=== PATIENT | female | born 1965 | race Caucasian/White ===

== ENCOUNTER 2024-07-13 13:16 | Outpatient (AMB) | payer OTHER, SELFPAY ==
--- NOTE | 2024-07-13 13:20 | MHC.OFFVIS ---
Vital Signs 07/13/24 13:26 Height 5 ft 2 in Weight 206 lb BMI 37.7 BP 132/88 Blood Pressure Location Lt brachial Position Sitting Pulse 75 Pulse Source Pulse Oximeter Pulse Oximetry (%) 96 Oxygen Delivery Method Room Air Intake Visit Reasons: abnormal lab Intake Note: Patient presents for a new patient evaluation- Raised antibody titer Athletic Trainer Required: No Accompanied by: Self / Same As Patient Allergies No Known Allergies Allergy (Verified 07/13/24 13:26) HPI HPI abnormal lab: Details: Patient presents for evaluation due to recurrent toe swelling since 01/2022 with abnormal labs low titer positive rheumatoid factor and ferritin level. In January she developed toe swelling involving her 3rd and 4th toes. Each episode would last about 2 weeks. When she initially had swelling, she would have difficulty walking and bearing weight on joint. She would use NSAID ibuprofen when needed. Last episode was early May and lasted about a week. She presented to PCPs office in saw a PA who prescribed naproxen, which patient took twice a day for a week. She has no joint swelling at this time. This year she has had 2 episode of recurrent toe swelling. Patient showed me photos which appears as dactylitis involving right 3rd and 4th toes with slight synovitis of right 3rd and 4th MTP. No other joints are involved. She denies Raynaud's phenomenon, fevers, rash occurring with joint swelling, dyspnea, pleurisy, oral ulcers, uveitis, IBD, psoriasis, paresthesia or cytopenias. She has lesions on her trunk treated with topical betamethasone. When she told her extrusion manager about toe swelling, extrusion manager mentioned to her that she may have psoriatic arthritis. Patient reports she has not had confirmed psoriasis. She does not describe lesions as typical plaque psoriasis. Denies any scaling of her lesions. She denies having back pain in childhood. She currently does not have any back pain. Prior to January 2022 she has not had any joint swelling. 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 She has not seen a cut out and marking machine operator and being monitored routinely. She has intermittent wrists paresthesia when she sleeps with her wrists flexed at night. Self-limiting. 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 No current elbow pain at this time. No history of diagnostic arthrocentesis being performed. She reports history of elevated uric acid level tested on 2 occasions. She saw PCP and had blood drawn today. She plans to move to [place] in 9 days because her daughter will be giving in July. She will continue to keep her medical care in [place]. Maternal aunts have son has psoriasis. No family history of IBD. Her mother has rheumatoid arthritis [facility] Medical History (Updated 07/13/24 @ 15:14 by Adam Perez MD) Raised antibody titer Tubular adenoma History of urinary disorder Allergic rhinitis Pre-diabetes Allergic urticaria Asthma Essential hypertension Surgical History (Updated 07/13/24 @ 13:25 by Claire Valadez MA) Status post breast reduction H/O breast biopsy Family History (Updated 07/13/24 @ 13:24 by Claire Valadez MA) Mother Rheumatoid arthritis Social History (Updated 07/13/24 @ 13:24 by Claire Valadez MA) Alcohol intake: current Comment: Occasionally Patient Tobacco Use Status: Never used Tobacco Review of Systems Const All systems reviewed & are unremarkable except as noted in HPI and below Physical Exam Vital Signs: Last Vital Signs Pulse 75 07/13/24 13:26 BP 132/88 07/13/24 13:26 Pulse Ox 96 07/13/24 13:26 Oxygen Delivery Method Room Air 07/13/24 13:26 BMI result Body Mass Index 37.7 Const Other: General: Comfortable CVS: RRR Respiratory: clear to auscultation bilaterally. Good respiratory effort Skin: Erythematous line 1 cm on right side of abdomen. No scales. No psoriatic plaque. MSK: No tenderness to palpate of any joints. No synovitis found. [place] nodes seen. Subluxation right DIPJ. Tenderness left lateral epicondyle. No pain at elbow with resisted wrist extension. Good range of motion of upper extremity and lower extremity. No dactylitis present. No enthesitis. No tenderness of lumbar spinous process or SI joints. Good range of motion of cervical spine and lumbar flexion. Negative DARRYL. Assessment & Plan Assessment & Plan (1) Gout: Comment: Recurrent podagra affecting right 3rd and 4th toe is concerning for gout. Time course of each episode is about 2 weeks treated with NSAID with benefit, which is typical for gout attack. She has history of rash on her trunk but it does not appear as classic psoriasis. She does not have any other spondyloarthritis features at this time. Can consider psoriatic arthritis in the differential but my clinical suspicion is low. I recommended obtaining lab results from today, which she had done at lab [facility]. If uric acid level is greater than 6 (goal), I will start allopurinol and colchicine. We discussed side effects of allopurinol colchicine. Code(s): M10.9 - Gout, unspecified Category: Medical Qualifiers: Chronicity: unspecified Gout etiology: unspecified cause Gout site: toe Laterality: right Qualified Code(s): M10.9 - Gout, unspecified Plan: Requesting lab results from [facility] Requesting right foot x-ray from [facility] After lab results are reviewed, I may consider starting allopurinol 100 mg daily and colchicine 0.6 mg daily. She will need labs checked monthly for uric acid level and every 3 months for uric acid level, AST, ALT and creatinine. She will call office when she is in [place] for our office to fax lab requisition to her local lab. She will keep a photo diary Return to clinic in 3 months or sooner if needed (2) Hyperuricemia: Comment: Per history Code(s): E79.0 - Hyperuricemia without signs of inflammatory arthritis and tophaceous disease Category: Medical Plan: Requesting lab results from today's lab draw. (3) Lateral epicondylitis, left elbow: Comment: Left mild suspected based on clinical exam and history. At this time she is asymptomatic. Discussed conservative management Code(s): M77.12 - Lateral epicondylitis, left elbow Category: Medical Plan: If she has recurrent persistent pain, she will call office for PT order Return to clinic in 3 months (4) Rash and other nonspecific skin eruption: Comment: Unclear etiology of rash that she has on her trunk. It does not appear as classic psoriasis. She is followed by Dermatology and is prescribed topical betamethasone when needed for rash. Code(s): R21 - Rash and other nonspecific skin eruption Category: Medical Plan: Photo log Continue to follow up with Dermatology (5) Rheumatoid factor positive: Comment: Low titer positive rheumatoid factor. Her clinical presentation with recurrent toe dactylitis is not consistent with rheumatoid arthritis. Code(s): R76.8 - Other specified abnormal immunological findings in serum Category: Medical Plan: Monitor clinically (6) Elevated ferritin level: Comment: Acute phase reaction in setting of right toe dactylitis likely due to gout attack. Low clinical suspicion for adult onset Still's disease or periodic fever syndrome or any other connective tissue disease. Code(s): R79.89 - Other specified abnormal findings of blood chemistry Category: Medical Plan: Requesting lab results from today's lab draw Coding Level of Care Code New Pt Level 4 (05580) Diagnoses Gout involving toe of right foot, unspecified cause, unspecified chronicity M10.9 Chronicity: unspecified Gout etiology: unspecified cause Gout site: toe Laterality: right Hyperuricemia E79.0 Lateral epicondylitis, left elbow M77.12 Rash and other nonspecific skin eruption R21 Rheumatoid factor positive R76.8 Elevated ferritin level R79.89
[2024-07-13 13:26] VITALS: BP 132/88; PULSE 75; O2SAT 96; BMI 37.7
== END 2024-07-13 14:15 | disposition home or self-care (01) ==
PROVIDERS: Visit Provider Internal Medicine Rheumatology
DX: M10.9 Gout, unspecified (principal); E79.0 Hyperuricemia without signs of inflammatory arthritis and tophaceous disease; M77.12 Lateral epicondylitis, left elbow; R21 Rash and other nonspecific skin eruption; R76.8 Other specified abnormal immunological findings in serum; R79.89 Other specified abnormal findings of blood chemistry
CPT/HCPCS: 99204

== ENCOUNTER 2024-10-07 13:46 | Outpatient (AMB) | payer OTHER, SELFPAY ==
--- NOTE | 2024-10-07 13:54 | A.OFFVIS_ITS ---
Vital Signs 10/07/24 13:57 Height 5 ft 2 in Weight 206 lb 9.17 oz BMI 37.8 BP 128/80 Pulse 77 Pulse Source Palpation Pulse Oximetry (%) 96 Oxygen Delivery Method Room Air Intake Visit Reasons: abnormal lab Intake Note: Patient presents today to discuss abnormal labs Allergies No Known Allergies Allergy (Verified 07/13/24 13:26) HPI HPI abnormal lab: Details: AST 19 10/[facility]. She has not had another episode of toe or foot swelling. She feels well. [facility] Medical History Raised antibody titer Tubular adenoma History of urinary disorder Allergic rhinitis Pre-diabetes Allergic urticaria Asthma Essential hypertension Surgical History Status post breast reduction H/O breast biopsy Family History Mother Rheumatoid arthritis Social History Alcohol intake: current Comment: Occasionally Patient Tobacco Use Status: Never used Tobacco Review of Systems Const All systems reviewed & are unremarkable except as noted in HPI and below Physical Exam Vital Signs: Last Vital Signs Pulse 77 10/07/24 13:57 BP 128/80 10/07/24 13:57 Pulse Ox 96 10/07/24 13:57 Oxygen Delivery Method Room Air 10/07/24 13:57 BMI result Body Mass Index 37.8 Const Other: General: Comfortable CVS: RRR Respiratory: clear to auscultation bilaterally. Good respiratory effort Skin: No skin lesions. MSK: No tenderness to palpate of any joints. No synovitis found. Assessment & Plan Assessment & Plan (1) Gout: Comment: Recurrent podagra affecting right 3rd and 4th toe is concerning for gout. Time course of each episode is about 2 weeks treated with NSAID with benefit, which is typical for gout attack. She has had mild transaminitis with repeat labs showing normal liver function tests. In setting of hyperuricemia, I recommend s tarting allopurinol and colchicine with goal of lowering uric acid to less than 6. We discussed side effects of allopurinol colchicine. Code(s): M10.9 - Gout, unspecified Category: Medical Qualifiers: Gout site: toe Gout etiology: unspecified cause Chronicity: unspecified Laterality: right Qualified Code(s): M10.9 - Gout, unspecified Plan: Start allopurinol 100 mg daily and colchicine 0.6 mg daily. She will need labs checked monthly for uric acid level and every 3 months for uric acid level, AST, ALT and creatinine. Lab requisition to her local lab in [place]. She will keep a photo diary Return to clinic in 6 months or sooner if needed (2) Hyperuricemia: Comment: Per history Code(s): E79.0 - Hyperuricemia without signs of inflammatory arthritis and tophaceous disease Category: Medical Plan: Requesting lab results from today's lab draw (3) Rheumatoid factor positive: Comment: Low titer positive rheumatoid factor. Her clinical presentation with recurrent toe dactylitis is not consistent with rheumatoid arthritis. Code(s): R76.8 - Other specified abnormal immunological findings in serum Category: Medical Plan: Monitor clinically Orders: Orders Uric Acid 11/06/24 E79.0 - Hyperuricemia without signs of inflammatory arthritis and tophaceous disease Uric Acid 12/06/24 E79.0 - Hyperuricemia without signs of inflammatory arthritis and tophaceous disease Uric Acid 01/05/25 E79.0 - Hyperuricemia without signs of inflammatory arthritis and tophaceous disease Uric Acid 02/04/25 E79.0 - Hyperuricemia without signs of inflammatory arthritis and tophaceous disease Uric Acid 05/05/25 E79.0 - Hyperuricemia without signs of inflammatory arthritis and tophaceous disease Alanine Aminotransferase 10/07/24 Z79.60 - prison (current) use of unspecified immunomodulators and immunosuppressants Aspartate Amino Transferase 10/07/24 Z79.60 - superintendent container terminal (current) use of unspecified immunomodulators and immunosuppressants Complete Blood Count Auto Diff 10/07/24 Z79.60 - superintendent container terminal (current) use of unspecified immunomodulators and immunosuppressants Creatinine 10/07/24 Z79.60 - prison (current) use of unspecified immunomod ulators and immunosuppressants Creatinine 10/07/24 Z79.60 - prison (current) use of unspecified immunomodulators and immunosuppressants Creatinine 04/05/25 Z79.60 - prison (current) use of unspecified immunomodulators and immunosuppressants Complete Blood Count Auto Diff 01/05/25 Z79.60 - superintendent container terminal (current) use of unspecified immunomodulators and immunosuppressants Complete Blood Count Auto Diff 04/05/25 Z79.60 - superintendent container terminal (current) use of unspecified immunomodulators and immunosuppressants Complete Blood Count Auto Diff 07/04/25 Z79.60 - prison (current) use of unspecified immunomodulators and immunosuppressants Aspartate Amino Transferase 10/07/24 Z79.60 - superintendent container terminal (current) use of unspecified immunomodulators and immunosuppressants Aspartate Amino Transferase 04/05/25 Z79.60 - prison (current) use of unspecified immunomodulators and immunosuppressants Alanine Aminotransferase 04/05/25 Z79.60 - superintendent container terminal (current) use of unspecified immunomodulators and immunosuppressants Alanine Aminotransferase 07/04/25 Z79.60 - prison (current) use of unspecified immunomodulators and immunosuppressants Uric Acid 10/07/24 E79.0 - Hyperuricemia without signs of inflammatory arthritis and tophaceous disease Uric Acid 10/07/24 E79.0 - Hyperuricemia without signs of inflammatory art hritis and tophaceous disease Uric Acid 03/06/25 E79.0 - Hyperuricemia without signs of inflammatory arthritis and tophaceous disease Uric Acid 04/05/25 E79.0 - Hyperuricemia without signs of inflammatory arthritis and tophaceous disease Creatinine 01/05/25 Z79.60 - superintendent container terminal (current) use of unspecified immunomodulators and immunosuppressants Creatinine 07/04/25 Z79.60 - superintendent container terminal (current) use of unspecified immunomodulators and immunosuppressants Complete Blood Count Auto Diff 10/07/24 Z79.60 - superintendent container terminal (current) use of unspecified immunomodulators and immunosuppressants Aspartate Amino Transferase 01/05/25 Z79.60 - prison (current) use of unspecified immunomodulators and immunosuppressants Aspartate Amino Transferase 07/04/25 Z79.60 - superintendent container terminal (current) use of unspecified immunomodulators and immunosuppressants Alanine Aminotransferase 10/07/24 Z79.60 - superintendent container terminal (current) use of unspecified immunomodulators and immunosuppressants Alanine Aminotransferase 01/05/25 Z79.60 - prison (current) use of unspecified immunomodulators and immunosuppressants Medications: New allopurinol 100 mg PO DAILY 90 tabs 0RF colchicine 0.6 mg PO DAILY 90 tabs 1RF Coding Level of Care Code Est Pt Level 4 (73714) Complex EM visit Add On G2211 Diagnoses Gout involving toe of right foot, unspecified cause, unspecified chronicity M10.9 Gout site: toe Gout etiology: unspecified cause Chronicity: unspecified Laterality: right Hyperuricemia E79.0 Rheumatoid factor positive R76.8
[2024-10-07 13:57] VITALS: BP 128/80; PULSE 77; O2SAT 96; BMI 37.8
== END 2024-10-07 14:41 | disposition home or self-care (01) ==
LOC: HO.RHES 13:47
PROVIDERS: PCP Family Medicine; Visit Provider Internal Medicine Rheumatology
DX: M10.9 Gout, unspecified (principal); E79.0 Hyperuricemia without signs of inflammatory arthritis and tophaceous disease; R76.8 Other specified abnormal immunological findings in serum
CPT/HCPCS: 99214

== ENCOUNTER → 2024-10-07 13:46 | Outpatient (BNVA) | payer OTHER, SELFPAY | PROVIDERS: PCP Family Medicine; Visit Provider Internal Medicine Rheumatology ==

== ENCOUNTER 2025-04-14 14:06 | Outpatient (AMB) | payer BC, SELFPAY ==
[2025-04-14 14:48] VITALS: BP 126/70; PULSE 79; O2SAT 97; BMI 41.0
--- NOTE | 2025-04-14 14:48 | MHC.OFFVIS ---
Vital Signs 04/14/25 14:48 Height 5 ft 2 in Weight 223 lb 15.834 oz BMI 41.0 BP 126/70 Blood Pressure Location Lt brachial Position Sitting Pulse 79 Pulse Source Pulse Oximeter Pulse Oximetry (%) 97 Oxygen Delivery Method Room Air Intake Visit Reasons: 6 Months Allergies No Known Allergies Allergy (Verified 04/14/25 14:49) HPI HPI 6 Months: Details: 3 weeks ago she pain in left midfoot. SHe could not put any weight on her foot and used crutches for 2 days. Took colchicine 0.6mg daily. Symptoms improved day 5. Took colchicine for 8-9 days. Rash on her buttocks is painful after sitting for over 45 minutes. She has pruritus associated with rash. Denies drainage. 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 COUNTS INCLUDE 234 BEDS AT THE [facility] Medical History Raised antibody titer Tubular adenoma History of urinary disorder Allergic rhinitis Pre-diabetes Allergic urticaria Asthma Essential hypertension Surgical History Status post breast reduction H/O breast biopsy Family History (Updated 04/14/25 @ 14:49 by Fatimah Troncoso CMA) Mother Rheumatoid arthritis Sarcoma Social History Alcohol intake: current Comment: Occasionally Patient Tobacco Use Status: Never used Tobacco Physical Exam Vital Signs: Last Vital Signs Pulse 79 04/14/25 14:48 BP 126/70 04/14/25 14:48 Pulse Ox 97 04/14/25 14:48 Oxygen Delivery Method Room Air 04/14/25 14:48 BMI result Body Mass Index 41.0 Const Other: General: Comfortable CVS: RRR Respiratory: clear to auscultation bilaterally. Good respiratory effort Skin: She has erythematous circular lesions without discharge along gluteal folds MSK: No tenderness to palpate of any joints. No synovitis found. Results Reviewed Results Reviewed: Reviewed uric acid levels 2024 scanned in [facility]. Assessment & Plan Assessment & Plan (1) Gout: Comment: She had an episode of soft tissue swelling left midfoot 3 weeks ago that lasted 9 days. She took colchicine daily and noticed benefit on 5th day likely related to natural course of acute gout episode rather than colchicine drug effect. We discussed acute gout protocol with colchicine. Her uric acid level has been greater than 6 since being on allopurinol 100 mg daily. Uric acid goal is less than 6. Rheumatology history: Diagnosed with presumed gout presenting with recurrent podagra affecting right 3rd and 4th toe lasting 2 weeks treated with NSAID with benefit. History of hyperuricemia. Allopurinol and colchicine started 09/2024- Code(s): M10.9 - Gout, unspecified Category: Medical Qualifiers: Chronicity: unspecified Gout etiology: unspecified cause Gout site: toe Laterality: right Qualified Code(s): M10.9 - Gout, unspecified Plan: Requesting uric acid level from 3 weeks ago [facility]. If uric acid level is greater than 6, I will increase allopurinol to 200 mg daily AST, ALT and creatinine ordered for drug monitoring on allopurinol Acute gout protocol with colchicine: She will use colchicine 1.2 mg than 1 hour later take 1 tablet then the next day take 1 tablet twice a day until gout resolves. She may take ibuprofen 600 mg t.i.d. for pain control during acute gout attack. She we will call office if she is out of colchicine for refill. Okay to refill colchicine 0.6 mg, 30 tablets. She has standing order for monthly uric acid level check to do in [place] Return to clinic October 2025 when she returns from [place], which is her primary residents at this time (2) Hyperuricemia: Comment: Per history Code(s): E79.0 - Hyperuricemia without signs of inflammatory arthritis and tophaceous disease Category: Medical Plan: See above (3) Rash: Comment: Buttocks region along folds less likely related to allopurinol drug side effect. Code(s): R21 - Rash and other nonspecific skin eruption Category: Medical Plan: PCP follow-up Orders: Orders Alanine Aminotransferase Today E79.0 - Hyperuricemia without signs of inflammatory arthritis and tophaceous disease, M10.9 - Gout, unspecified Creatinine Today E79.0 - Hyperuricemia without signs of inflammatory arthritis and tophaceous disease, M10.9 - Gout, unspecified Aspartate Amino Transferase Today E79.0 - Hyperuricemia without signs of inflammatory arthritis and tophaceous disease, M10.9 - Gout, unspecified Coding Level of Care Code Est Pt Level 4 (34858) Complex EM visit Add On G2211 Diagnoses Gout involving toe of right foot, unspecified cause, unspecified chronicity M10.9 Chronicity: unspecified Gout etiology: unspecified cause Gout site: toe Laterality: right Hyperuricemia E79.0 Rash R21
--- OUTSIDE RECORDS SUMMARY | 2025-04-14 18:34 | XMS_ITS | Clinical Summary ---
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 Name Role Phone Unavailable Primary Care Provider Unavailabl e Allergies No known active allergies Immunizations Name Administration Dates Next Due Covid-19 (Pfizer) Dilution Required 10/25/2020,0 09/25/2020 Social History Tobacco Use Types Packs/Day Years Used Date Smoking Tobacco: Never Assessed Sex and Gender Information Value Date Recorded Sex Assigned at Not on file Gender Identity Not on file Sexual Orientation Not on file Plan of Treatment Health Maintenance Due Date Last Done Comments Hepatitis C Screening 1964 Depression Screening 1976 Preventative Health Evaluation 1982 DTap / Tdap / Td (1 - Tdap) 12/13/1983 Cervical Cancer Screening (Pap Smear) 1985 Colon Cancer Screening (Colonoscopy) 2009 Breast Cancer Screening (Mammogram) 2014 Shingrix-Zoster Vaccine (1 o f 2) 2014 COVID-19 Vaccine (3 - 2024-2 6 season) 2025 10/25/2020, 09/25/2020 Influenza Vaccine (#1) 2025 RSV Adult > 60+ Yrs or (1 - 1-dose 75+ series) 12/13/2039 Hepatitis B Vaccines Aged Out No long er eligible based on patient's age to complete this topic Pneumococcal Vaccine Aged Out No long er eligible based on patient's age to complete this topic RSV Ped < 20 months Aged Out No longe r eligible based on patient's age to complete this topic Insurance Payer Benefit Plan / Group Subscriber ID Effective Dates Phone Address [facility] [id number] 2021-Presen t [address] [place] [address] O [employer]UE [employer]OSS BLUE [employer]IELD BLUE CROSS OUT OF STATE [id number] 2020-Conner peter [address] [place] [address] O
--- OUTSIDE RECORDS SUMMARY | 2025-04-14 18:34 | XMS_ITS | Data Portability ---
Author Organization [facility], Main Office Address [address] [facility] [address] [place] [id number] Care Team Providers Care Odd Jobs Day Worker Name Role Phone LENSCRAFTERS Quality Control Assistant LAURA MCCLOUD Sequins Winder SONJA ARMSTRONG Radio Board Operator FABIÁN TRUJILLO Primary Care Provider [facility] Historic Preservationist Assessment Encounter Date Assessment Date Assessment LastModified by Organization Details LastModified Time 02/27/2024 02/27/2024 On two occasions , her rheumatoid factor was elevated. Today, I took a more detailed history regarding her arthralgia and, using the RA classification criteria, calculated a score of 7. There is also a questionable diagnosis of gout. Given the repeated elevation of her rheumatoid factor and elevated inflammatory markers, including ferritin levels, I recommend a consultation with a grinder mill operator. She also reports neuropathic symptoms in the bilateral thigh regions. I recommend delaying an electromyography (EMG) until after her evaluation by the grinder mill operator. Additionally, she experiences pain on the tops of both feet. I have conducted an X-ray of her feet, which showed osteoarthritic changes and a heel spur. She is considering seeing a sugar trucker for her foot pain. This multidisciplinary approach should help clarify her diagnoses and guide appropriate management. dutch Not available 02/28/2024 11:48:32 05/21/2024 05/21/2024 Discussed with patient the signs/symptoms warranted for a return to office visit and/or an ER visit. Patient understood and agreed with the plan. [email or web address] Not available 05/21/2024 13:53:29 07/13/2024 07/13/2024 The patient was scheduled to see her grinder mill operator after today s visit; however, this appointment has been postponed by the grinder mill operator office. She plans to continue primary care with our office and intends to seek out a grinder mill operator at her new residence if an earlier appointment can be scheduled to evaluate her condition. Given her mildly elevated creatinine, I will recheck her BMP levels before considering NSAID use for potential future gout flares. Hydration was emphasized during the visit, and the patient was advised to limit NSAID use. She has had only one gout flare since her last visit, but if she experiences more persistent flares or has more than two flares, we may consider initiating uric acid-lowering therapy, such as allopurinol. This was discussed with her during the visit. Her symptoms currently seem more suggestive of gout rather than rheumatoid arthritis (RA), as she does not report morning joint stiffness typically associated with RA. However, a grinder mill operator s evaluation will be helpful in clarifying the diagnosis. If her BMP continues to show elevated creatinine levels, I will prescribe prednisone as a short-term option to manage any potential flares until she can be seen by a specialist. A handout on a low-purine diet was sent to her via the patient portal and mailed as a hard copy. We also discussed dietary changes to help manage elevated uric acid levels during the visit. I will plan to follow up with her during her next annual physical unless she develops symptoms sooner, in which case she should contact the office for further evaluation. [email or web address] Not available 07/13/2024 12:41:57 Plan of Treatment Reminders Order Date Submit Date Provider Last Modified By Organization Details Last Modified Time Details Appointments PE EST 2024 03:00P JOSE RAMON MANCINI Not available Not available Not available Lab BMP, serum or plasma 2023 024 WALT [facility] (Centralized Electronic Ordering - All Locations), Patient Can Go To The Location Of Their Choice, [id number] 07/14/2024 06:06:40 uric acid, serum or plasma 2023 024 WALT [facility] (Centralized Electronic Ordering - All Locations), Patient Can Go To The Location Of Their Choice, [id number] 05/22/2024 10:06:21 lipid panel, serum 2023 024 [email or web address] [facility], [address], [address], [place], [address], 01/23/2024 10:54:31 CMP, serum or plasma 2023 WALT [facility] (Centralized Electronic Ordering - All Locations), Patient Can Go To The Location Of Their Choice, 01/30/2024 14:07:15 CBC w/ auto diff 2023 WALT [facility] (Centralized Electronic Ordering - All Locations), Patient Can Go To The Location Of Their Choice, 01/30/2024 14:07:16 TSH, ultra- sensit sachin, serum 2023 WALT [facility] (Centralized Electronic Ordering - All Locations), Patient Can Go To The Location Of Their Choice, 01/30/2024 14:07:21 uric acid, serum or plasma 2023 WALT [facility] (Centralized Electronic Ordering - All Locations), Patient Can Go To The Location Of Their Choice, 01/30/2024 14:07:22 ferrit in, serum or plasma 2023 WALT [facility] (Centralized Electronic Ordering - All Locations), Patient Can Go To The Location Of Their Choice, 01/30/2024 14:07:24 magnes ium, serum or plasma 2023 WALT [facility] (Centralized Electronic Ordering - All Locations), Patient Can Go To The Location Of Their Choice, 01/30/2024 14:07:24 ANTHONY (antin uclear antibo dies) screen , ifa, serum 2023 W[facility], [address], [place], [address], 01/30/2024 14:07:25 ESR (eryth rocyte sedime ntatio n rate), blood 2023 [facility], [address], [place], [address], 01/30/2024 14:07:22 C reacti ve protei n, QN, serum or plasma 2023 024 WALT [facility], [address], [place], [address], 01/30/2024 14:07:25 protei n electr ophore sis panel, serum or plasma 2023 024 WALT [facility], [address], [place], [address], 01/30/2024 14:07:17 protei n electr ophore sis, urine 2023 024 W[facility], [address], [place], [address], 01/30/2024 14:07:17 borrel ia burgdo rferi IgG + IgM + total panel, IA, serum 2023 024 W[facility], [address], [place], [address], 01/30/2024 14:07:19 vitami n B12, serum 2023 024 [facility], [address], [place], [address], 01/30/2024 14:07:23 methyl malona te, QN, serum or plasma 2023 024 [facility], [address], [place], [address], 01/30/2024 14:07:21 rf (rheum atoid factor ), serum 2023 024 [facility], [address], [place], [address], 01/30/2024 14:07:18 thiami ne, QN, blood 2023 024 [facility], [address], [place], [address], 01/30/2024 14:07:19 ccp (cycli c citrul linate d peptid e) iga+ig g, serum 2023 024 WALT [facility] (Centralized Electronic Ordering - All Locations), Patient Can Go To The Location Of Their Choice, 01/30/2024 14:07:20 lipid panel, serum 2022 023 WALT [facility], [address], [address], [place], [address], 12/27/2022 17:42:08 TSH, serum or plasma 2022 023 WALT [facility], [address], [address], [place], [address], 12/27/2022 17:47:47 CMP, serum or plasma 2022 023 W[facility] (Centralized Electronic Ordering - All Locations), Patient Can Go To The Location Of Their Choice, 12/27/2022 17:42:07 CBC w/ auto diff 2022 023 W[facility] (Centralized Electronic Ordering - All Locations), Patient Can Go To The Location Of Their Choice, 12/27/2022 15:59:57 HbA1c (hemog lobin A1c), blood 2022 023 W[facility] (Centralized Electronic Ordering - All Locations), Patient Can Go To The Location Of Their Choice, 12/27/2022 16:34:05 magnes ium, serum or plasma 2022 023 WALT [facility] (Centralized Electronic Ordering - All Locations), Patient Can Go To The Location Of Their Choice, 12/27/2022 17:42:09 Referral podiat rist referr al - left foot pain 2.5yrs flare ups 2023 024 [facility], [address], [address], [place], [address], 11/17/2024 09:48:[address] referr al 2023 024 WALT Whittaker MD, [address] [place] [address], [address], [place], [address], 10/08/2024 21:57:51 podiat rist referr al 2023 024 [email or web address] Not available 07/16/2024 09:04:38 physic al therap ist referr al - Please see for should er pain Total # of Visits : ` 2022 023 Not available 07/03/2023 16:27:44 Procedures None record ed. Surgeries None record ed. Imaging XR, foot, 3 or more view 2023 024 [email or web address] Not available 01/30/2024 09:13:34 Medication Orders epinep hrine 0.3 mg/0.3 mL inject ion, auto-i njecto r 2023 024 dutch [id number], [address] [facility], [place], [address], 02/27/2024 19:07:24 meloxi cam 15 mg tablet 2022 023 dutch [id number], [address] [facility], [place], [address], 01/16/2024 15:34:03 Patient TargetsNo targets recorded. Patient Instructions Encounter Date Encounter Id Patient Instructions Last Modified By Organization Details Last Modified Time 12/27/2022 [id number] well visit, wome n 50 to 65: care instructions dutch Not available 12/27/2022 10:03:25 medical record request* - had colo 1 yr ago at [facility]. pls get records. Import mama from [facility] notes more recnet pap, Not available 12/30/2022 14:12:44 shoulder bursitis: exercises dutch Not available 12/27/2022 10:05:08 shoulder bursitis: care instructions [email or web address] Not available 12/27/2022 10:05:08 01/16/2024 [id number] well visit, wome n 50 to 65: care instructions [email or web address] Not available 01/16/2024 15:52:23 medical record request* - had colo 1 yr ago at [facility]. pls get records. Import rosendo from [facility] notes more recnet pap, Not available 01/26/2024 11:27:57 02/27/2024 [id number] high blood pressure: care instructions ckokar Not available 02/28/2024 11:47:41 learning about high blood pressure ckokar Not available 02/28/2024 11:47:40 neuropathic pain : care instructions ckokar Not available 02/28/2024 11:47:40 07/13/2024 [id number] purine-restricte d diet: care instructions ckokar Not available 07/13/2024 12:41:22 Reason for Referral Physical Therapist Referral for Bursitis of shoulder Please see for shoulder painTotal # of Visits: ` Referring Physician: Fabián Trujillo [facility], Encounter Date: 12/27/2022 [place] Referral for Pain in both feet Referring Physician: Fabián Trujillo [facility], Encounter Date: 01/16/2024 Pathological Technician Referral for Rheumatoid factor detected Referring Physician: Fabián Trujillo [facility], Encounter Date: 02/27/2024 [place] Referral for Pain in both feet left foot pain 2.5yrs flare ups Referring Physician: Kia Cobb [facility], Encounter Date: 05/21/2024 Results Created Date Observation Date Name Description Value Unit Range Abnormal Flag Note LastModifiedBy Organization Detail LastModifiedTime 12/28/1912/27/2022 COMPL ETE BLOOD COUNT WBC 6.0 K/mm3 (4.0-1 1.0) Not Available [facility] (Centralized Electronic Ordering - All Locations) Patient Can Go To The Location Of Their Choice, [id number] 12/27/2022 15:59:57 12/28/19 23 12/27/2022 COMPL ETE BLOOD COUNT RBC 4.25 M/mm3 (4.20- 5.40) Not Available [facility] (Centralized Electronic Ordering - All Locations) Patient Can Go To The Location Of Their Choice, 12/27/2022 15:59:57 12/28/1912/27/2022 COMPL ETE BLOOD COUNT HGB 13.1 gm/dL (11.7- 15.5) Not Available [facility] (Centralized Electronic Ordering - All Locations) Patient Can Go To The Location Of Their Choice, 12/27/2022 15:59:57 12/28/1912/27/2022 COMPL ETE BLOOD COUNT HCT 41.1 % (35.7- 45.8) Not Available [facility] (Centralized Electronic Ordering - All Locations) Patient Can Go To The Location Of Their Choice, 12/27/2022 15:59:57 12/28/1912/27/2022 COMPL ETE BLOOD COUNT MCV 96.7 fL (80.0- 100.0) Not Available [facility] (Centralized Electronic Ordering - All Locations) Patient Can Go To The Location Of Their Choice, 12/27/2022 15:59:57 12/28/1912/27/2022 COMPL ETE BLOOD COUNT MCH 30.8 pg (27.0- 34.0) Not Available [facility] (Centralized Electronic Ordering - All Locations) Patient Can Go To The Location Of Their Choice, 12/27/2022 15:59:57 12/28/1912/27/2022 COMPL ETE BLOOD COUNT MCHC 31.9 g/dL (33.0- 37.0) low Not Available [facility] (Centralized Electronic Ordering - All Locations) Patient Can Go To The Location Of Their Choice, 12/27/2022 15:59:57 12/28/1912/27/2022 COMPL ETE BLOOD COUNT plt 337 K/mm3 (150-4 60) Not Available [facility] (Centralized Electronic Ordering - All Locations) Patient Can Go To The Location Of Their Choice, 12/27/2022 15:59:57 12/28/1912/27/2022 COMPL ETE BLOOD COUNT RDW-SD 47.8 fL (<47.0 ) high Not Available [facility] (Centralized Electronic Ordering - All Locations) Patient Can Go To The Location Of Their Choice, 12/27/2022 15:59:57 12/28/19 23 12/27/2022 COMPL ETE BLOOD COUNT MPV 10.8 fL (9.4-1 2.4) Not Available [facility] (Centralized Electronic Ordering - All Locations) Patient Can Go To The Location Of Their Choice, [id number] 12/27/2022 15:59:57 12/28/19 23 12/27/2022 COMPL ETE BLOOD COUNT automated NRBC 0.0 #/100 _WBC' s Not Available [facility] (Centralized Electronic Ordering - All Locations) Patient Can Go To The Location Of Their Choice, [id number] 12/27/2022 15:59:57 12/28/19 23 12/27/2022 COMPL ETE BLOOD COUNT abs. NRBC 0.0 K/mm3 Not Available [facility] (Centralized Electronic Ordering - All Locations) Patient Can Go To The Location Of Their Choice, [id number] 12/27/2022 15:59:57 12/28/1912/27/2022 HEMOG LOBIN A1C hemoglobin A1C 5.6 % (4.0-5 .6) MONIT ORING : In known diabe tic patie nts, hemog lobin A1c targe ts shoul d be discu ssed with healt h care provi tino. DIAGN OSTIC USE: The Ameri can Diabe elliot Assoc iatio n (ADA) and the World Healt h Organ izati on (WHO) recom mend the use of HbA1c to diagn ose diabe elliot using a thres hold of 6.5%. Patie nts who have an HbA1c betwe en 5.7% and 6.4% are consi dered at incre ased risk for devel oping diabe elliot in the futur e. CAUTI ON: False ly low HbA1c resul ts may be obser yoel in patie nts with hemol ytic anemi a, homoz ygous forms of abnor mal hemog lobin (e.g. SS, CC, SC), pregn torres, recen t blood loss or hemog lobin F great er than 7%. Fruct osami ne may be used as an alter steve test in these cases . REFER ENCE: ADA: Stand ards of Medic al Care in Diabe elliot 2019, The Journ al of Clini misael and Appli ed Resea [facility] and Educa tion Volum e 43, Suppl ement 1 Not Available [facility] (Centralized Electronic Ordering - All Locations) Patient Can Go To The Location Of Their Choice, 12/27/2022 16:34:05 12/28/19 23 12/27/2022 COMPR EHENS SACHIN METAB OLIC PANL glucose 98 mg/dL (70-99 ) Not Available [facility] (Centralized Electronic Ordering - All Locations) Patient Can Go To The Location Of Their Choice, 12/27/2022 17:42:07 12/28/19 23 12/27/2022 COMPR EHENS SACHIN METAB OLIC PANL BUN 20 mg/dL (6-20) Not Available [facility] (Centralized Electronic Ordering - All Locations) Patient Can Go To The Location Of Their Choice, 12/27/2022 17:42:07 12/28/1912/27/2022 COMPR EHENS SACHIN METAB OLIC PANL creatinine 1.0 mg/dL (0.5-1 .0) Not Available [facility] (Centralized Electronic Ordering - All Locations) Patient Can Go To The Location Of Their Choice, 12/27/2022 17:42:07 12/28/19 23 12/27/2022 COMPR EHENS SACHIN METAB OLIC PANL sodium 144 mmol/ L (133-1 45) Not Available [facility] (Centralized Electronic Ordering - All Locations) Patient Can Go To The Location Of Their Choice, 12/27/2022 17:42:07 12/28/1912/27/2022 COMPR EHENS SACHIN METAB OLIC PANL potassium 4.0 mmol/ L (3.6-5 .2) Not Available [facility] ([facility]ized Electronic Ordering - All Locations) Patient Can Go To The Location Of Their Choice, 12/27/2022 17:42:07 12/28/1912/27/2022 COMPR EHENS SACHIN METAB OLIC PANL chloride 102 mmol/ L (98-10 7) Not Available [facility] (Centralized [facility] Ordering - All Locations) Patient Can Go To The Location Of Their Choice, 12/27/2022 17:42:07 12/28/19 23 12/27/2022 COMPR EHENS SACHIN METAB OLIC PANL bicarbonate 29 mmol/ L (22-29 ) Not Available [facility] (Centralized Electronic Ordering - All Locations) Patient Can Go To The Location Of Their Choice, 12/27/2022 17:42:12/28/1912/27/2022 COMPR EHENS SACHIN METAB OLIC PANL anion gap 13 (4-17) Not Available [facility] ([facility]ized Electronic Ordering - All Locations) Patient Can Go To The Location Of Their Choice, 12/27/2022 17:42:12/28/1912/27/2022 COMPR EHENS SACHIN METAB OLIC PANL albumin 4.7 gm/dL (3.4-4 .8) Not Available [facility] (Centralized Electronic Ordering - All Locations) Patient Can Go To The Location Of Their Choice, 12/27/2022 17:42:12/28/1912/27/2022 COMPR EHENS SACHIN METAB OLIC PANL calcium 9.7 mg/dL (8.6-1 0.5) Not Available [facility] (Centralized Electronic Ordering - All Locations) Patient Can Go To The Location Of Their Choice, 12/27/2022 17:42:12/28/1912/27/2022 COMPR EHENS SACHIN METAB OLIC PANL bilirubin,to radha 0.6 mg/dL (0-1.2 ) Not Available [facility] (Centralized Electronic Ordering - All Locations) Patient Can Go To The Location Of Their Choice, 12/27/2022 17:42:12/28/1912/27/2022 COMPR EHENS SACHIN METAB OLIC PANL total protein 7.3 gm/dL (6.2-8 .2) Not Available [facility] (Centralized Electronic Ordering - All Locations) Patient Can Go To The Location Of Their Choice, 12/27/2022 17:42:12/28/1912/27/2022 COMPR EHENS SACHIN METAB OLIC PANL Ag ratio 1.8 Not Available [facility] (Centralized Electronic Ordering - All Locations) Patient Can Go To The Location Of Their Choice, 12/27/2022 17:42:12/28/1912/27/2022 COMPR EHENS SACHIN METAB OLIC PANL AST 31 U/L (0-32) Not Available [facility] ([facility]ized Electronic Ordering - All Locations) Patient Can Go To The Location Of Their Choice, 12/27/2022 17:42:12/28/1912/27/2022 COMPR EHENS SACHIN METAB OLIC PANL alk phos 104 U/L (35-10 4) Not Available [facility] (Centralized Electronic Ordering - All Locations) Patient Can Go To The Location Of Their Choice, 12/27/2022 17:42:12/28/1912/27/2022 COMPR EHENS SACHIN METAB OLIC PANL ALT 41 U/L (0-33) high Not Available [facility] (Centralized Electronic Ordering - All Locations) Patient Can Go To The Location Of Their Choice, 12/27/2022 17:42:12/28/1912/27/2022 COMPR EHENS SACHIN METAB OLIC PANL estimated GFR creatinine 65 mL/mi n/1.7 3_M2 Creat inine based estim ated glome rular filtr ation (eGFR ) in adult s is calcu lated using the Natio nal Kidne y Found ation recom karma d 2020 CKD-E PI equat ion. Estim ates GFR from serum creat inine , age and sex. Not Available [facility] (Centralized Electronic Ordering - All Locations) Patient Can Go To The Location Of Their Choice, 12/27/2022 17:42:12/28/1912/27/2022 LIPID PANEL cholesterol, total 202 mg/dL (<200) high Not Available [facility] ([facility] Order[facility] - All Locations) Patient Can Go To The Location Of Their Choice, 12/27/2022 17:42:12/28/1912/27/2022 LIPID PANEL triglyceride 73 mg/dL (<150) Not Available [facility] ([facility] - [facility] Locations) Patient Can Go To The Location Of Their Choice, 12/27/2022 17:42:12/28/1912/27/2022 LIPID PANEL HDL chol 59 mg/dL (>39) Not Available [facility] ([facility] Ordering - All Locations) Patient Can Go To The Location Of Their Choice, 12/27/2022 17:42:08 12/28/1912/27/2022 LIPID PANEL LDL cholesterol, calculated 128 mg/dL (0-130 ) Not Available [facility] ([facility] Ordering - All Locations) Patient Can Go To The Location Of Their Choice, [id number] 12/27/2022 17:42:08 12/28/19 23 12/27/2022 LIPID PANEL non HDL cholesterol (calc) 143 mg/dL (<160) Not Available [facility] ([facility] Order[facility] - All Locations) Patient Can Go To The Location Of Their Choice, 12/27/2022 17:42:08 12/28/1912/27/2022 MAGNE SIUM magnesium 2.2 mg/dL (1.6-2 .3) Not Available [facility] ([facility] Ordering - All Locations) Patient Can Go To The Location Of Their Choice, [id number] 12/27/2022 17:42:09 12/28/1912/27/2022 TSH WITH REFLE X TO FT4 TSH 0.73 uIU/m L (0.4-4 .2) Not Available [facility] ([facility] Order[facility] - All Locations) Patient Can Go To The Location Of Their Choice, [id number] 12/27/2022 17:47:47 01/23/20 24 01/23/2024 CMP14 (REFL EX HGB A1C) glucose 112 mg/dL 70-99 above high normal Not Available [facility] ([facility]) [address] [place], [address], 01/30/2024 14:07:15 01/23/20 24 01/23/2024 CMP14 (REFL EX HGB A1C) BUN 22 mg/dL 6-24 Not Available [facility] ([facility]) [address] [place], [address], 01/30/2024 14:07:15 01/23/20 24 01/23/2024 CMP14 (REFL EX HGB A1C) creatinine 1.11 mg/dL 0.57-1 .00 above high normal Not Available [facility] ([facility]) [address] [place], [address], 01/30/2024 14:07:15 01/23/20 24 01/23/2024 CMP14 (REFL EX HGB A1C) eGFR 57 mL/mi n/1.7 3 >59 below low normal Not Available [facility] ([facility]) [address], [place], [place], [address], 01/30/2024 14:07:15 01/23/20 24 01/23/2024 CMP14 (REFL EX HGB A1C) BUN/creatini ne ratio 20 9-23 Not Available [facility] ([facility]) [address] [place], [address], 01/30/2024 14:07:15 01/23/20 24 01/23/2024 CMP14 (REFL EX HGB A1C) sodium 140 mmol/ L 134-14 4 Not Available [facility] ([facility]) [address] [place], [address], 01/30/2024 14:07:15 01/23/20 24 01/23/2024 CMP14 (REFL EX HGB A1C) potassium 3.8 mmol/ L 3.5-5. 2 Not Available [facility] ([facility]) [address] [place], [address], 01/30/2024 14:07:15 01/23/20 24 01/23/2024 CMP14 (REFL EX HGB A1C) chloride 101 mmol/ L 96-106 Not Available [facility] ([facility]) [address] [place], [address], 01/30/2024 14:07:15 01/23/20 24 01/23/2024 CMP14 (REFL EX HGB A1C) carbon dioxide, total 26 mmol/ L 20-29 Not Available [facility] ([facility]) [address] [place], [address], 01/30/2024 14:07:15 01/23/20 24 01/23/2024 CMP14 (REFL EX HGB A1C) calcium 9.4 mg/dL 8.7-10 .2 Not Available [facility] ([facility]) [address] [place], [address], 01/30/2024 14:07:15 01/23/20 24 01/23/2024 CMP14 (REFL EX HGB A1C) albumin 4.2 g/dL 3.8-4. 9 Not Available [facility] ([facility]) [address] [place], [address], 01/30/2024 14:07:15 01/23/20 24 01/23/2024 CMP14 (REFL EX HGB A1C) bilirubin, total 0.4 mg/dL 0.0-1. 2 Not Available [facility] ([facility]) [address] [place], [address], 01/30/2024 14:07:15 01/23/20 24 01/23/2024 CMP14 (REFL EX HGB A1C) alkaline phosphatase 107 IU/L 44-121 Not Available [facility]) [address] [place], [address], 01/30/2024 14:07:15 01/23/20 24 01/23/2024 CMP14 (REFL EX HGB A1C) AST (SGOT) 34 IU/L 0-40 Not Available [facility] ([facility]) [address] [place], [address], 01/30/2024 14:07:15 01/23/20 24 01/23/2024 CMP14 (REFL EX HGB A1C) ALT (SGPT) 44 IU/L 0-32 above high normal Not Available [facility] ([facility]) [address] [place], [address], 01/30/2024 14:07:15 01/23/20 24 01/24/2024 CMP14 (REFL EX HGB A1C) hemoglobin A1C 5.9 % 4.8-5. 6 above high normal Predi abete s: 5.7 - 6.4 Diabe elliot: >6.4 Glyce tawanna contr ol for adult s with diabe elliot: <7.0 Not Available [facility] ([facility]) [address], [place], [address], 01/30/2024 14:07:15 01/23/20 24 01/24/2024 CMP14 (REFL EX HGB A1C) protein, total 6.9 g/dL 6.0-8. 5 Not Available [facility] ([facility]) [address], [place], [address], 01/30/2024 14:07:15 01/23/20 24 01/24/2024 CMP14 (REFL EX HGB A1C) globulin, total 2.7 g/dL 1.5-4. 5 Not Available [facility] ([facility]) [address], [place], [address], 01/30/2024 14:07:15 01/23/20 24 01/23/2024 CBC WITH DIFFE RENTI AL/PL ATELE T WBC 5.2 x10e3 /uL 3.4-10 .8 Not Available [facility] ([facility]) [address], [place], [address], 01/30/2024 14:07:16 01/23/20 24 01/23/2024 CBC WITH DIFFE RENTI AL/PL ATELE T RBC 4.12 x10e6 /uL 3.77-5 .28 Not Available [facility] ([facility]) [address], [place], [address], 01/30/2024 14:07:16 01/23/20 24 01/23/2024 CBC WITH DIFFE RENTI AL/PL ATELE T hemoglobin 12.4 g/dL 11.1-1 5.9 Not Available [facility] ([facility]) [address] [place], [address], 01/30/2024 14:07:16 01/23/20 24 01/23/2024 CBC WITH DIFFE RENTI AL/PL ATELE T hematocrit 38.8 % 34.0-4 6.6 Not Available [facility] ([facility]) [address], [place], [place], [address], 01/30/2024 14:07:16 01/23/20 24 01/23/2024 CBC WITH DIFFE RENTI AL/PL ATELE T MCV 94 fL 79-97 Not Available [facility] ([facility]) [address], [place], [place], [address], 01/30/2024 14:07:16 01/23/20 24 01/23/2024 CBC WITH DIFFE RENTI AL/PL ATELE T MCH 30.1 pg 26.6-3 3.0 Not Available [facility] ([facility]) [address] [address], [place], [place], [address], 01/30/2024 14:07:16 01/23/20 24 01/23/2024 CBC WITH DIFFE RENTI AL/PL ATELE T MCHC 32.0 g/dL 31.5-3 5.7 Not Available [facility] ([facility]) [address], [place], [place], [address], 01/30/2024 14:07:16 01/23/20 24 01/23/2024 CBC WITH DIFFE RENTI AL/PL ATELE T RDW 12.5 % 11.7-1 5.4 Not Available [facility] ([facility]) [address], [place], [place], [address], 01/30/2024 14:07:16 01/23/20 24 01/23/2024 CBC WITH DIFFE RENTI AL/PL ATELE T platelets 313 x10e3 /uL 150-45 0 Not Available [facility] ([facility]) [address], [place], [place], [address], 01/30/2024 14:07:16 01/23/20 24 01/23/2024 CBC WITH DIFFE RENTI AL/PL ATELE T neutrophils 63 % not estab. Not Available [facility] ([facility]) [address], [place], [place], [address], 01/30/2024 14:07:16 01/23/20 24 01/23/2024 CBC WITH DIFFE RENTI AL/PL ATELE T lymphs 26 % not estab. Not Available [facility] ([facility]) [address], [place], [place], [address], 01/30/2024 14:07:16 01/23/20 24 01/23/2024 CBC WITH DIFFE RENTI AL/PL ATELE T monocytes 7 % not estab. Not Available [facility] ([facility]) [address], [place], [place], [address], 01/30/2024 14:07:16 01/23/20 24 01/23/2024 CBC WITH DIFFE RENTI AL/PL ATELE T eos 3 % not estab. Not Available [facility] ([facility]) [address], [place], [place], [address], 01/30/2024 14:07:16 01/23/20 24 01/23/2024 CBC WITH DIFFE RENTI AL/PL ATELE T basos 1 % not estab. Not Available [facility] ([facility]) [address], [place], [place], [address], 01/30/2024 14:07:16 01/23/20 24 01/23/2024 CBC WITH DIFFE RENTI AL/PL ATELE T immature cells MONOGRAM OPERATOR Not Available [facility]) [address], [place], [place], [address], 01/30/2024 14:07:16 01/23/20 24 01/23/2024 CBC WITH DIFFE RENTI AL/PL ATELE T neutrophils (absolute) 3.2 x10e3 /uL 1.4-7. 0 Not Available [facility] ([facility]) [address], [place], [place], [address], 01/30/2024 14:07:16 01/23/20 24 01/23/2024 CBC WITH DIFFE RENTI AL/PL ATELE T lymphs (absolute) 1.4 x10e3 /uL 0.7-3. 1 Not Available [facility] ([facility]) [address], [place], [place], [address], 01/30/2024 14:07:16 01/23/20 24 01/23/2024 CBC WITH DIFFE RENTI AL/PL ATELE T monocytes(ab solute) 0.4 x10e3 /uL 0.1-0. 9 Not Available [facility] ([facility]) [address], [place], [place], [address], 01/30/2024 14:07:16 01/23/20 24 01/23/2024 CBC WITH DIFFE RENTI AL/PL ATELE T eos (absolute) 0.2 x10e3 /uL 0.0-0. 4 Not Available [facility] ([facility]) [address], [place], [place], [address], 01/30/2024 14:07:16 01/23/20 24 01/23/2024 CBC WITH DIFFE RENTI AL/PL ATELE T baso (absolute) 0.1 x10e3 /uL 0.0-0. 2 Not Available [facility] ([facility]) [address], [place], [place], [address], 01/30/2024 14:07:16 01/23/20 24 01/23/2024 CBC WITH DIFFE RENTI AL/PL ATELE T immature granulocytes 0 % not estab. Not Available [facility] ([facility]) [address], [place], [place], [address], 01/30/2024 14:07:16 01/23/20 24 01/23/2024 CBC WITH DIFFE RENTI AL/PL ATELE T immature grans (abs) 0.0 x10e3 /uL 0.0-0. 1 Not Available [facility] ([facility]) [address], [place], [place], [address], 01/30/2024 14:07:16 01/23/20 24 01/23/2024 CBC WITH DIFFE RENTI AL/PL ATELE T NRBC MONOGRAM OPERATOR Not Available [facility] ([facility]) [address], [place], [place], [address], 01/30/2024 14:07:16 01/23/20 24 01/23/2024 CBC WITH DIFFE RENTI AL/PL ATELE T hematology comments: MONOGRAM OPERATOR Not Available [facility]) [address], [place], [place], [address], 01/30/2024 14:07:16 01/23/20 24 01/23/2024 PROTE IN ELECT RO.,S please note: Commen t Prote in elect ropho resis scan will follo w via compu ter, mail, or couri er mikey gr. Not Available [facility] ([facility]) [address], [place], [place], [address], 01/30/2024 14:07:17 01/23/20 24 01/27/2024 PROTE IN ELECT RO.,S albumin 3.8 g/dL 2.9-4. 4 Not Available [facility] ([facility]) [address], [place], [place], [address], 01/30/2024 14:07:17 01/23/20 24 01/27/2024 PROTE IN ELECT RO.,S cxabq-9-grpb ulin 0.2 g/dL 0.0-0. 4 Not Available [facility] ([facility]) [address], [place], [place], [address], 01/30/2024 14:07:17 01/23/20 24 01/27/2024 PROTE IN ELECT RO.,S vaixx-0-mygi ulin 0.7 g/dL 0.4-1. 0 Not Available [facility] ([facility]) [address], [place], [address], 01/30/2024 14:07:17 01/23/20 24 01/27/2024 PROTE IN ELECT RO.,S beta globulin 1.2 g/dL 0.7-1. 3 Not Available [facility] ([facility]) [address], [place], [place], [address], 01/30/2024 14:07:17 01/23/20 24 01/27/2024 PROTE IN ELECT RO.,S gamma globulin 1.0 g/dL 0.4-1. 8 Not Available [facility] ([facility]) [address], [place], [place], [address], 01/30/2024 14:07:17 01/23/20 24 01/27/2024 PROTE IN ELECT RO.,S M-spike Not Observ ed g/dL not observ ed Not Available [facility] ([facility]) [address], [place], [place], [address], 01/30/2024 14:07:17 01/23/20 24 01/27/2024 PROTE IN ELECT RO.,S globulin, total 3.1 g/dL 2.2-3. 9 Not Available [facility] ([facility]) [address] [place], [address], 01/30/2024 14:07:17 01/23/20 24 01/27/2024 PROTE IN ELECT RO.,S A/G ratio 1.2 0.7-1. 7 Not Available [facility] ([facility]) [address], [place], [address], 01/30/2024 14:07:17 01/23/20 24 01/27/2024 PROTE IN ELECT RO.,S pdf . Not Available [facility] ([facility]) [address] [place], [address], 01/30/2024 14:07:17 01/23/20 24 01/23/2024 PROTE IN ELECT ROKEYURO M URINE please note: Commen t [facility]ollo w via compu ter, mail, or couri er mikey gr. Not Available [facility] ([facility]) [address] [place], [address], 01/30/2024 14:07:17 01/23/20 24 01/30/2024 PROTE IN ELECT RO, RANDO M URINE protein,tota l,urine TNP mg/dL Test not perfo rmed. No urine speci men recei yoel. Not Available [facility] ([facility]) [address], [place], [place], [address], 01/30/2024 14:07:17 01/23/20 24 01/30/2024 PROTE IN ELECT CARO RANDO M URINE albumin, U TNP % Test not perfo rmed. No urine speci men recei yoel. Not Available [facility] ([facility]) [address], [place], [place], [address], 01/30/2024 14:07:17 01/23/20 24 01/30/2024 PROTE IN ELECT KEYUR ELIZONDOO M URINE wgmll-5-xygk ulin, U TNP % Test not perfo rmed. No urine speci men recei yoel. Not Available [facility] ([facility]) [address], [place], [place], [address], 01/30/2024 14:07:17 01/23/20 24 01/30/2024 PROTE IN ELECT RO, KEYURO M URINE piaiw-7-ltqj ulin, U TNP % Test not perfo rmed. No urine speci men recei yoel. Not Available [facility] ([facility]) [address] [place], [address], 01/30/2024 14:07:17 01/23/20 24 01/30/2024 PROTE IN ELECT RO, RANDO M URINE beta globulin, U TNP % Test not perfo rmed. No urine speci men recei yoel. Not Available [facility] ([facility]) [address], [place], [place], [address], 01/30/2024 14:07:17 01/23/20 24 01/30/2024 PROTE IN ELECT RO, RANDO M URINE gamma globulin, U TNP % Test not perfo rmed. No urine speci men recei yoel. Not Available [facility] ([facility]) [address], [place], [place], [address], 01/30/2024 14:07:17 01/23/20 24 01/30/2024 PROTE IN ELECT RO, RANDO M URINE M-spike, % TNP % Test not perfo rmed. No urine speci men recei yoel. Not Available [facility] ([facility]) [address], [place], [place], [address], 01/30/2024 14:07:17 01/23/20 24 01/23/2024 LIPID PANEL cholesterol, total 186 mg/dL 100-19 9 Not Available [facility] ([facility]) [address], [place], [place], [address], 01/30/2024 14:07:18 01/23/20 24 01/23/2024 LIPID PANEL triglyceride s 91 mg/dL 0-149 Not Available [facility] ([facility]) [address], [place], [place], [address], 01/30/2024 14:07:18 01/23/20 24 01/23/2024 LIPID PANEL HDL cholesterol 52 mg/dL >39 Not Available [facility] [address], [place], [place], [address], 01/30/2024 14:07:18 01/23/20 24 01/23/2024 LIPID PANEL VLDL cholesterol misael 17 mg/dL 5-40 Not Available [facility] ([facility]) [address] [place], [address], 01/30/2024 14:07:18 01/23/20 24 01/23/2024 LIPID PANEL LDL chol calc ([facility]) 117 mg/dL 0-99 above high normal Not Available [facility] ([facility]) [address] [place], [address], 01/30/2024 14:07:18 01/23/20 24 01/23/2024 LIPID PANEL LDL calc comment: MONOGRAM OPERATOR Not Available [facility] ([facility]) [address], [place], [place], [address], 01/30/2024 14:07:18 01/23/20 24 01/24/2024 RHEUM ATOID FACTO R (RF) rheumatoid factor (rf) 14.9 IU/mL <14.0 above high normal Not Available [facility] ([facility]) [address], [place], [place], [address], 01/30/2024 14:07:18 01/23/20 24 01/27/2024 VITAM IN B1 (THIA MINE) , BLOOD vit. B1, whole blood 108.3 nmol/ L 66.5-2 00.0 Not Available [facility] ([facility]) [address] [place], [address], 01/30/2024 14:07:19 01/23/20 24 01/24/2024 LYME DISEA SE SEROL OGY W/REF JUSTICE lyme total antibody niesha Negati ve negati ve Lyme antib odies not detec thomas. Refle x testi ng is not indic ated. No labor atory evide nce of infec tion with B. burgd orfer i (Lyme disea se). Negat sachin resul ts may occur in patie nts recen tly infec thomas (less than or equal to 14 days) with B. burgd orfer i. If recen t infec tion is suspe cted, repea t testi ng on a new sampl e colle cted in 7 to 14 days is recom karma snyder. Not Available [facility] ([facility]) [address], [place], [place], [address], 01/30/2024 14:07:19 01/23/20 24 01/26/2024 CCP ANTIB ODIES IGG/I GA ccp antibodies IgG/IgA 4 units 0-19 Negat sachin <20 Weak posit sachin 20 - 39 Moder ate posit sachin 40 - 59 Stron g posit sachin >59 Value s above 250 units are repor thomas at the reque st of the clien t. Such value s are beyon d the linea rity range of the assay . Not Available [facility] ([facility]) [address], [place], [place], [address], 01/30/2024 14:07:20 01/23/20 24 01/23/2024 TSH RFX ON ABNOR MAL TO FREE T4 TSH 0.750 uIU/m L 0.450- 4.500 Not Available [facility] ([facility]) [address] [place], [address], 01/30/2024 14:07:21 01/23/20 24 01/26/2024 METHY LMALO ASHWIN ACID, SERUM methylmaloni c acid, serum 202 nmol/ L 0-378 Not Available [facility] ([facility]) [address] [place], [address], 01/30/2024 14:07:21 01/23/20 24 01/23/2024 URIC ACID uric acid 10.3 mg/dL 3.0-7. 2 above high normal Thera steve maldonado t for gout patie nts: <6.0 Not Available [facility] ([facility]) [address] [place], [address], 01/30/2024 14:07:22 01/23/20 24 01/24/2024 SEDIM ENTAT ION RATE- WESTE RGREN sedimentatio n rate-westerg lisa 45 mm/HR 0-40 above high normal Not Available [facility] ([facility]) [address] [place], [address], 01/30/2024 14:07:22 01/23/20 24 01/24/2024 VITAM IN B12 vitamin B12 453 pg/mL 232-12 45 Not Available [facility] ([facility]) [address] [place], [address], 01/30/2024 14:07:23 01/23/20 24 01/23/2024 MAGNE SIUM magnesium 2.0 mg/dL 1.6-2. 3 Not Available [facility] ([facility]) [address] [place], [address], 01/30/2024 14:07:23 01/23/20 24 01/23/2024 AHMET TIN ferritin 199 NG/mL 15-150 above high normal Not Available [facility] ([facility]) [address] [place], [address], 01/30/2024 14:07:24 01/23/20 24 01/24/2024 C-LUBNA CTIVE PROTE IN, QUANT C-reactive protein, quant 7 mg/L 0-10 Not Available [facility] ([facility]) [address] [place], [address], 01/30/2024 14:07:25 01/23/20 24 01/24/2024 ANTHONY BY IFA RFX TITER /JAELYN COOKIE ANTHONY by ifa rfx titer/patter n Negati ve Negat sachin <1:80 Borde rline 1:80 Posit sachin >1:80 ICAP nomen clatu re: AC-0 For more infor matio n about Hep-2 cell patte rns use ANApa ttern s.org , the offic ial websi te for the Inter natio nal Conse nsus on Antin uclea r Antib sherita (ANTHONY) Patte rns (ICAP ). Not Available [facility] ([facility]) [address], [place], [place], [address], 01/30/2024 14:07:25 01/23/20 24 01/30/[address] PROBL EM request problem TNP Test not perfo rmed. No urine speci men recei yoel. TEST: 21260 4 Prote in,To radha,U rine Panel : [id number] 8 96748 8 Album in, U Panel : 58702 8 37644 9 Alpha -1-Gl obuli n, U Panel : 14727 8 26520 0 Alpha -2-Gl obuli n, U Panel : 64794 8 43059 1 Beta Globu ankur, U Panel : 14994 8 10623 2 Gamma Globu ankur, U Panel : 12004 8 70029 3 M-Spi ke, % Panel : 59851 8 Not Available [facility] ([facility]) [address], [place], [place], [address], 01/30/2024 14:07:26 02/06/20 24 02/06/2024 PROTE IN ELECT RO RANDO M URINE please note: Commen t [facility] will follo w via compu ter, mail, or couri christiano gr. Not Available [facility] ([facility]) [address], [place], [place], [address], 02/10/2024 20:06:48 02/06/20 24 02/07/2024 PROTE IN ELECT RO, RANDO M URINE protein,tota l,urine 20.8 mg/dL not estab. normal Not Available [facility] ([facility]) [address], [place], [place], [address], 02/10/2024 20:06:48 02/06/20 24 02/10/2024 PROTE IN ELECT RO, RANDO M URINE albumin, U 48.2 % Not Available [facility] ([facility]) [address], [place], [place], [address], 02/10/2024 20:06:48 02/06/20 24 02/10/2024 PROTE IN ELECT ADELSO ELIZONDO M URINE vmsaa-5-uaob ulin, U 3.9 % Not Available [facility] ([facility]) [address] [place], [address], 02/10/2024 20:06:48 02/06/20 24 02/10/2024 PROTE IN ELECT ADELSO ELIZONDO M URINE lgtfq-6-ihow ulin, U 11.9 % Not Available [facility] ([facility]) [address] [place], [address], 02/10/2024 20:06:48 02/06/20 24 02/10/2024 PROTE IN ELECT ADELSO ELIZONDO M URINE beta globulin, U 19.5 % Not Available [facility]) [address] [place], [address], 02/10/2024 20:06:48 02/06/20 24 02/10/2024 PROTE IN ELECT ADELSO ELIZONDO URINE gamma globulin, U 16.5 % Not Available [facility] ([facility]) [address] [place], [address], 02/10/2024 20:06:48 02/06/20 24 02/10/2024 PROTE IN ELECT ADELSO ELIZONDO URINE M-spike, % Not Observ ed % not observ ed Not Available [facility] ([facility]) [address] [place], [address], 02/10/2024 20:06:48 02/06/20 24 02/10/2024 PROTE IN ELECT ADELSO ELIZONDO M URINE pdf . Not Available [facility] ([facility]) [address] [place], [address], 02/10/2024 20:06:48 02/06/20 24 02/06/2024 PROTE IN ELECT ADELSO ELIZONDO M URINE please note: Commen t Prote in elect ropho resis scan will follo w via compu ter, mail, or couri christiano gr. Not Available [facility] ([facility]) [address] [place], [address], 02/10/2024 18:06:08 02/06/20 24 02/07/2024 PROTE IN ELECT RO, RANDO M URINE protein,tota l,urine 20.8 mg/dL not estab. normal Not Available [facility] ([facility]) [address] [place], [address], 02/10/2024 18:06:08 02/06/20 24 02/10/2024 PROTE IN ELECT RO, RANDO M URINE albumin, U 48.2 % Not Available [facility] ([facility]) [address] [place], [address], 02/10/2024 18:06:08 02/06/20 24 02/10/2024 PROTE IN ELECT RO, RANDO M URINE ljwul-2-cfbb ulin, U 3.9 % Not Available [facility] ([facility]) [address] [place], [address], 02/10/2024 18:06:08 02/06/20 24 02/10/2024 PROTE IN ELECT RO, KEYURO M URINE mcfkr-7-exto ulin, U 11.9 % Not Available [facility] ([facility]) [address] [place], [address], 02/10/2024 18:06:08 02/06/20 24 02/10/2024 PROTE IN ELECT RO, RANDO M URINE beta globulin, U 19.5 % Not Available [facility] ([facility] [address] [place], [address], 02/10/2024 18:06:08 02/06/20 24 02/10/2024 PROTE IN ELECT RO, RANDO M URINE gamma globulin, U 16.5 % Not Available [facility] [address] [place], [address], 02/10/2024 18:06:08 02/06/20 24 02/10/2024 PROTE IN ELECT ROADELSO M URINE M-spike, % Not Observ ed % not observ ed Not Available [facility] ([facility]) [address] [place], [address], 02/10/2024 18:06:08 02/06/20 24 02/07/2024 RHEUM ATOID FACTO R (RF) rheumatoid factor (rf) 15.6 IU/mL <14.0 above high normal Not Available [facility] ([facility]) [address] [place], [address], 02/10/2024 18:06:09 02/06/20 24 02/07/2024 SEDIM ENTAT ION RATE- WESTE RGREN sedimentatio n rate-westerg lisa 18 mm/HR 0-40 normal Not Available [facility] ([facility]) [address] [place], [address], 02/10/2024 18:06:09 02/06/20 24 02/07/2024 AHMET TIN ferritin 210 NG/mL 15-150 above high normal Not Available [facility] ([facility]) [address] [place], [address], 02/10/2024 18:06:10 05/21/20 24 05/22/2024 URIC ACID uric acid 10.2 mg/dL 3.0-7. 2 above high normal Thera peuti c targe t for gout patie nts: <6.0 Not Available [facility] ([facility]) [address] [place], [address], 05/22/2024 10:06:21 07/13/20 24 07/13/2024 BASIC METAB OLIC PANEL (8) glucose 93 mg/dL 70-99 normal Not Available [facility] ([facility]) [address] [facility] [place], [address], 07/14/2024 06:06:40 07/13/20 24 07/13/2024 BASIC METAB OLIC PANEL (8) BUN 21 mg/dL 6-24 normal Not Available [facility] ([facility]) [address] [place], [address], 07/14/2024 06:06:40 07/13/20 24 07/13/2024 BASIC METAB OLIC PANEL (8) sodium 141 mmol/ L 134-14 4 normal Not Available [facility] ([facility]) [address], [place], [address], 07/14/2024 06:06:40 07/13/20 24 07/13/2024 BASIC METAB OLIC PANEL (8) potassium 3.8 mmol/ L 3.5-5. 2 normal Not Available [facility] ([facility]) [address], [place], [address], 07/14/2024 06:06:40 07/13/20 24 07/13/2024 BASIC METAB OLIC PANEL (8) chloride 99 mmol/ L 96-106 normal Not Available [facility] ([facility]) [address], [place], [address], 07/14/2024 06:06:40 07/13/20 24 07/13/2024 BASIC METAB OLIC PANEL (8) carbon dioxide, total 23 mmol/ L 20-29 normal Not Available [facility] ([facility]) [address], [place], [address], 07/14/2024 06:06:40 07/13/20 24 07/13/2024 BASIC METAB OLIC PANEL (8) calcium 9.6 mg/dL 8.7-10 .2 normal Not Available [facility] ([facility]) [address], [place], [address], 07/14/2024 06:06:40 07/13/20 24 07/14/2024 BASIC METAB OLIC PANEL (8) creatinine 1.02 mg/dL 0.57-1 .00 above high normal Not Available [facility] ([facility]) [address], [place], [place], [address], 07/14/2024 06:06:40 07/13/20 24 07/14/2024 BASIC METAB OLIC PANEL (8) eGFR 63 mL/mi n/1.7 3 >59 normal Not Available [facility] ([facility]) [address], [place], [place], [address], 07/14/2024 06:06:40 07/13/20 24 07/14/2024 BASIC METAB OLIC PANEL (8) BUN/creatini ne ratio 21 9-23 normal Not Available [facility] ([facility]) [address], [place], [place], [address], 07/14/2024 06:06:40 12/31/19 23 10/05/2021 MAMMO , scree layton, digit al, bilat eral No observ ation record ed. [email or web address] Not Available 12/30 14:04:49 01/04/20 23 01/03/2023 MAMMO , scree layton, digit al, bilat eral No observ ation record ed. [email or web address] [facility] [address], [place], [address], 01/09/2023 14:36:01 02/14/20 24 02/14/2024 XR, foot, 3 or more view Foot Min 3 Views Left, 3 views Reason : LEFT FOOT PAIN COMPAR ZAID: None. FINDIN GS: There is no eviden ce of acute fractu re or disloc ation. There is calcan eal spurri ng at the attach ments of the planta r fascia or Achill es tendon . There are mild osteoa rthrit ic change s at the intert arsal joints with spurri ng. IMPRES NICOLE: Chroni c findin gs withou t eviden ce of acute fractu re or disloc ation. WSN: [id number] Orderi ng Physic allyson: Farhad Trujillo Dictat ed By: Marvin Moyer MD Dictat ed Date/T howard: 12:15 p Review ed By: Marvin Moyer MD Signed By: Marvin Moyer MD Signed Date/T howard: 12:15 pm Transc ribed By: CHELSIE Transc ribed Date/T howard: 12:14 pm Patien t Class: Outpat ient [facility] (Outpt Imaging) [address] , [place], [address], 02/19/2024 17:41:08 02/14/20 24 02/14/2024 XR, foot, 3 or more view No observ ation record ed. [email or web address] Not Available 02/15 12:42:00 02/14/20 24 02/14/2024 XR, foot, 3 or more view Foot Min 3 Views Right, 3 views Reason : RIGHT FOOT PAIN COMPAR ZAID: None. FINDIN GS: There is no eviden ce of acute fractu re or disloc ation. There is calcan eal spurri ng at the attach ments of the planta r fascia and Achill es tendon . There are mild osteoa rthrit ic change s at the interp halang eal and first metata rsopha langea l joints with spurri ng. IMPRES NICOLE: Chroni c findin gs withou t eviden ce of acute fractu re or disloc ation. WSN: [id number] Orderi ng Physic allyson: Farhad Trujillo Dictat ed By: Marvin Moyer MD Dictat ed Date/T howard: 12:17 p Review ed By: Marvin Moyer MD Signed By: Marvin Moyer MD Signed Date/T howard: 12:17 pm Transc ribed By: CHELSIE Transc ribed Date/T howard: 12:16 pm [facility] t [facility] [address] , [place], [address], 02/19/2024 17:41:09 02/14/2002/14/2024 XR, foot, 3 or more view No observ ation record ed. [email or web address] Not Available 02/15 12:42:09 Result Notes Documentation Provider Name and Address Organization Details Recorded Time Xr, Foot, 3 Or More View : Foot Min 3 Views Left, 3 views Reason: LEFT FOOT PAIN COMPARISON: None. FINDINGS: There is no evidence of acute fracture or dislocation. There is calcaneal spurring at the attachments of the plantar fascia or Achilles tendon. There are mild osteoarthritic changes at the intertarsal joints with spurring. IMPRESSION: Chronic findings without evidence of acute fracture or dislocation. WSN: [id number] Ordering Physician: Fabián Trujillo Dictated By: Katie Moyer MD Dictated Date/Time: 02/14/24 12:15 p Reviewed By: Katie Moyer MD Signed By: Katie Moyer MD Signed Date/Time: 02/14/24 12:15 pm Transcribed By: CHELSIE Transcribed Date/Time: 02/14/24 12:14 pm Patient Class: Outpatient Fabián Trujillo MD [address] [address], [place], [address], [facility] 02/15/2024 19:33:04 Xr, Foot, 3 Or More View : Foot Min 3 Views Right, 3 views Reason: RIGHT FOOT PAIN COMPARISON: None. FINDINGS: There is no evidence of acute fracture or dislocation. There is calcaneal spurring at the attachments of the plantar fascia and Achilles tendon. There are mild osteoarthritic changes at the interphalangeal and first metatarsophalangeal joints with spurring. IMPRESSION: Chronic findings without evidence of acute fracture or dislocation. WSN: [id number] Ordering Physician: Fabián Trujillo Dictated By: Katie Moyer MD Dictated Date/Time: 02/14/24 12:17 p Reviewed By: Katie Moyer MD Signed By: Katie Moyer MD Signed Date/Time: 02/14/24 12:17 pm Transcribed By: CHELSIE Transcribed Date/Time: 02/14/24 12:16 pm Patient Class: Outpatient Fabián Trujillo MD [address] [address], [place], [address], [facility] 02/15/2024 19:32:42 Problems Name Problem SNOMED Code Status Onset Date Resolution Date Notes Provider Name and Address Organization Details Recorded Time Chest pain 64198593 Completed 10/25/2016 WILLARD Amor, [facility] 7 13:46:03 Body mass index 30+ - obesity 988069118 Completed 07/31/2020 Brad Paris MD [address] [address], [place], [address] , [facility] 1 10:38:01 Body mass index 40+ - severely obese 091597639 Completed 11/07/2017 Brad Paris MD [address] [address], [place], [address] , [facility] 8 11:19:52 Hyperlip idemia 98246968 Completed 12/27/2022 Fabián Trujillo MD [address] [address], [place], [address] , [facility] 3 09:49:41 Fatigue 15881720 Completed 10/25/2016 WILLARD Amor, [facility] 7 13:46:26 Influenz a vaccine needed 48274305478 06 Completed 201202/28/2014 RECORDED 03/31/20 13 8:53AM BY MARY WOODSON MA, OFFICE VISIT Not Available [facility] 4 05:26:03 Influenz a vaccine needed [id number] 06 Completed 201202/01/2014 RECORDED 03/31/20 13 8:53AM BY MARY WOODSON MA, OFFICE VISIT Not Available [facility] 4 14:11:48 Adult health examinat ion Completed 201302/28/2014 RECORDED 09/23/19 14 9:19AM BY MARY WOODSON MA, ALLEY ON/ADDEN DUM Not Available [facility] 4 05:26:03 Screenin g for malignan t neoplasm of breast Completed 201302/28/2014 RECORDED 09/23/19 14 9:19AM BY MARY WOODSON MA, ALLEY ON/ADDEN DUM Not Available [facility] 4 05:26:03 Adult health examinat ion Completed 201302/01/2014 RECORDED 09/23/19 14 9:19AM BY MARY WOODSON MA, ALLEY ON/ADDEN DUM Not Available [facility] 4 14:11:47 Radial styloid tenosyno vitis 24776082 Completed 201312/27/2022 Fabián Trujillo MD [address], [place], [address] , [facility] 3 09:49:45 Blood in urine 80286731 Completed 201310/25/2016 Mary ying MA [facility], [facility] 7 13:46:07 History of urinary disease 191975977 Active 2013 Prolifer ative Glomerul ar nephriti s Not Available [facility] 2 08:46:57 Essentia l hyperten nicole 97543466 Active 2013 Not Available [facility] 2 08:46:57 Impaired fasting glycemia 671490980 Completed 201301/16/2024 Fabián Trujillo MD [address], [place], [address] , [facility] 4 08:50:40 Screenin g for malignan t neoplasm of breast Completed 201302/01/2014 RECORDED 09/23/19 14 9:19AM BY MARY WOODSON MA, ALLEY ON/ADDEN DUM Not Available [facility] 4 14:11:48 Asthma 244793188 Active 2013 Not Available [facility] 2 08:46:57 Patient status finding 740648667 Completed 201310/25/2016 RECORDED 09/23/19 14 9:23AM BY MARY WOODSON MA, OFFICE VISIT [place] Amor, [facility] 7 13:45:52 Allergy Completed 201310/25/2016 RECORDED 12/23/19 14 2:37PM BY BRAD PARIS MD, PHONE ENCOUNTE R [place] Amor, [facility] 7 13:45:49 Impaired fasting glycemia 532909720 Completed 201302/28/2014 IMPRESSI ON: RECHECK LABS 6 MONTHS. LETTER SENT; RECORDED 01/07/20 14 9:25PM BY JOSE RAMON SOTO, ALLEY ON/ADDEN DUM Fabián Trujillo MD [address], [place], [address] , [facility] 4 08:50:40 Tubular adenoma 780774405 Active 2015 Not Available [facility] 2 08:46:57 Urticari a 659713181 Completed 202001/16/2024 Fabián Trujillo MD [address], [place], [address] , [facility] 4 15:33:43 Allergic urticari a 77306396 Active 2020 Not Available [facility] 2 08:46:57 Morbid obesity 677351673 Active 2021 Not Available [facility] 2 08:46:57 Prediabe elliot 839326046 Active 2023 Fabián Trujillo MD [address], [place], [address] , [facility] 4 18:43:48 Hypergordon fontenot 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 Procedures Surgical History Date Name Laterality Status Provider Name and Address Organization Details Recorded Time 3 Most Recent Mammogram completed Verito Draper [facility] 01/09/2023 14:35:48 3 Colonoscopy completed Verito Draper [facility] 01/01/2023 10:57:35 2 Date of Last Pap Smear completed Mary silva [facility] 12/27/2022 09:48:38 2 Mammogram both breasts completed Cari Wise [facility] 12/30/2022 14:04:51 6 Date of Last Colonoscopy completed Mary silva [facility] 10/25/2016 13:47:08 5 Breast Surgery completed Mary silva [facility] 07/31/2020 09:43:18 cosmetic surgery completed Mary silva [facility] 12/27/2022 09:40:03 Breast Biopsy completed Mary silva [facility] 07/06/2014 13:04:22 Breast reduction completed Mary silva [facility] 07/31/2020 09:43:18 Imaging Results None recorded. Procedure Notes None recorded. Medical Equipment None Reported. Allergies Allergen ID Allergen Name Allergen Category Reaction Reaction Severity Criticality Documentation Date Start Date Code Code System Note Provider Name and Address Organization Details Recorded Time 95636 honey bee venom medicatio n Not available Not available Not available 11/07/2017 92228 7 RxNorm Viki Gallardo MA [facility] 8 10:08:41 Medications Name Sig Start Date Stop Date Status Note LastModified by Organization Details LastModified Time amoxicillin 875 mg tabs active Not Available Not Available Not Available valsartan/h ydrochlorot hiazide 160-25 mg tabs active Not Available Not Available Not Available doxycycline hyclate 100 mg capsule TAKE 1 CAPSULE BY MOUTH TWICE A DAY FOR 7 DAYS 12/27 completed Not Available Not Available Not Available azithromyci n 250 mg tablet 03/01 completed Not Available Not Available Not Available tretinoin 0.025 % topical cream APPLY A PEA SIZED AMOUNT AT BEDTIME. active Not Available Not Available No t Available meloxicam 15 mg tablet TAKE 1 TABLET BY MOUTH ONCE DAILY NEEDED 01/15 completed Not Available Not Available Not Available ibuprofen 200 mg capsule Take 2 capsules every 4-6 hours by oral route as needed. 01/15 completed Not Available Not Available Not Available clobetasol 0.05 % topical cream APPLY TO AFFECTED AREA TWICE A DAY FOR 2 WEEKS active Not Available Not Available No t Available amoxicillin 875 mg tablet active Not Available Not Available Not Available tacrolimus 0.1 % topical ointment active Not Available Not Available Not Available clotrimazol e-betametha sone 1 %-0.05 % topical cream APPLY TO AFFECTED AREA TWICE A DAY FOR 14 DAYS active Not Available Not Available No t Available Ear Drops (carbamide peroxide) 6.5 % INSTILL 5 DROPS INTO AFFECTED EAR(S) BY OTIC ROUTE 2 TIMES PER DAY FOR NO MORE THAN 4 DAYS 01/15 completed Not Available Not Available Not Available epinephrine 0.3 mg/0.3 mL injection, auto-inject or INJECT 1 PEN INTRAMUSC ULARLY NEEDED FOR ALLERGIC REACTION AND CALL 911 active Not Available Not Available No t Available albuterol sulfate HFA 90 mcg/actuati on aerosol inhaler INHALE 2 PUFFS INTO LUNGS EVERY 4 HOURS NEEDED active Not Available Not Available No t Available Benadryl 25 mg capsule Take 1 capsule as needed by oral route at bedtime. active Not Available Not Available No t Available valsartan 160 mg-hydrochl orothiazide 25 mg tablet TAKE 1 TABLET DAILY FOR HYPERTENS ION 2024 active Not Available Not Available Not Avai lable albuterol (refill) 90 mcg/actuati on aerosol inhaler Inhale 2 puffs every 4-6 hours by inhalatio n route as needed for 30 days. 11/07 completed Not Available Not Available Not Available peg 3350-electr olytes 236 gram-22.74 gram-6.74 gram-5.86 gram solution TAKE 8 OUNCE BY MOUTH DIRECTED 12/27 completed Not Available Not Available Not Available Gavilyte-C 240 gram-22.72 gram-6.72 gram-5.84 gram oral solution 10/25 completed Not Available Not Available Not Available Afluria 0393-1175 (PF) 45 mcg (15 mcg x 3)/0.5 mL IM syringe 03/01 completed Not Available Not Available Not Available Afluria Qd 2019- (36 mos up)(PF)60 mcg (15 mcg x4)/0.5 mL IM syringe ADM 0.5ML IM UTD 07/31 completed Not Available Not Available Not Available Vitals Date Recorded Body weight Body mass index (BMI) Body height Heart rate Oxygen saturation Oxygen saturation in Arterial blood by Pulse oximetry Body temperature Systolic And Diastolic Provider Name and Address Organization Details Last Updated DateTime 3 69654.3 2 g 40.2 kg/m2 157.48 cm 67 /min 98 % 98 % 97.4 [degF] 112/73 mm[Hg] Mary escalera MA [facility] 3 09:37:47 Date Recorded Body height Body mass index (BMI) Body weight Heart rate Oxygen saturation Oxygen saturation in Arterial blood by Pulse oximetry Body temperature Systolic And Diastolic Provider Name and Address Organization Details Last Updated DateTime 4 157.48 cm 41.4 kg/m2 207418. 68 g 77 /min 97 % 97 % 98 [degF] 144/72 mm[Hg] Dianna Bhagat MA [facility] 4 15:30:41 Date Recorded Systolic And Diastolic Provider Name and Address Organization Details Last Updated DateTime 01/16/2024 121/75 mm[Hg] Kaia Jacinto MA [facility] 01/16/2024 16:02:00 Date Recorded Body height Body mass index (BMI) Body weight Oxygen saturation Oxygen saturation in Arterial blood by Pulse oximetry Heart rate Body temperature Systolic And Diastolic Provider Name and Address Organization Details Last Updated DateTime 4 157.48 cm 40.3 kg/m2 78758.4 2 g 99 % 99 % 77 /min 97.9 [degF] 99/61 mm[Hg] Kaia Jacinto MA [facility] 4 14:02:06 Date Recorded Body height Body mass index (BMI) Body weight Heart rate Oxygen saturation Oxygen saturation in Arterial blood by Pulse oximetry Body temperature Systolic And Diastolic Provider Name and Address Organization Details Last Updated DateTime 4 157.48 cm 37.7 kg/m2 82613.1 3 g 72 /min 97 % 97 % 98.5 [degF] 98/62 mm[Hg] Marilou Phillips LPN [facility] 4 13:47:54 Date Recorded Body height Body mass index (BMI) Body weight Oxygen saturation Oxygen saturation in Arterial blood by Pulse oximetry Heart rate Body temperature Systolic And Diastolic Provider Name and Address Organization Details Last Updated DateTime 4 157.48 cm 37.5 kg/m2 99488.4 4 g 98 % 98 % 74 /min 97.6 [degF] 103/68 mm[Hg] Kaia Jacinto MA [facility] 4 09:10:27 Social History Question Answer Notes LastModified by Organizat ion Details LastModified Time Tobacco Smoking Status Never Smoker WILLARD Crowley, [facility] 07/06/2014 13:04:22 Do You Have An Advance Directive? Yes HCP Information not available 09/21/2021 Is Blood Transfusion Acceptable In An Emergency? Yes Information not available 08/16/2015 What Is Your Level Of Caffeine Consumption? Moderate Coffee, 2 Servings Daily Information not available 07/06/2014 How Much Tobacco Do You Chew? None Information not available 08/16/2015 What Type Of Diet Are You Following? REGULAR Information not available 01/16/2024 Which Illicit Or Recreational Drugs Have You Used? None Information not available 08/16/2015 Live Alone Or With Others? With Others (Demian), 2 Dogs Information not available 01/16/2024 Do You Take Precautions To Prevent Distracted Driving? Yes Information not available 08/16/2015 How Often Do You Need To Have Someone Help You When You Read Instructions, Pamphlets, Or Other Written Material From Your Doctor Or Pharmacy? Never Information not available 08/16/2015 Have You Served In The ? No Information not available 10/25/2016 Have You Or Anyone In Your Household Had Any Of The Following Symptoms In The Last 14 Days: Sore Throat, Cough, Chills, Body Aches For Unknown Reasons, Shortness Of Breath For Unknown Reasons, Loss Of Smell, Loss Of Taste, Fever At Or Greater Than 100 Degrees Fahrenheit? No Information not available 07/31/2020 Are You Or Anyone In Your Household A Health Care Provider Or Emergency Responder? No Information not available 07/31/2020 To The Best Of Your Knowledge Have You Been In Close Proximity To Any Individual Who Tested Positive For COVID-19? No Information not available 07/31/2020 *AWV ONLY* Are You Presently Prescribed Opioid Medication By PCP Or Specialist? If YES -Provider Assess The Benefit For Other, Non-opioid Pain Therapies Instead, Even If The Patient Does Not Have OUD But Is Possibly At Risk. No Information not available 09/21/2021 Have You Recently Traveled To A COVID-19 High Risk Area Or Gathering In The Last 10 Days? No Information not available 07/31/2020 What Was The Date Of Your Most Recent Tobacco Screening? 01/16/2024 Information not available 01/16/2024 How Many Children Do You Have? 2 Roxana And Concepción Information not available 07/06/2014 Do You Use Protection During Sex? No Information not available 08/16/2015 Seat Belts Used Routinely Yes Information not available 09/21/2021 Are You Sexually Active? Yes Information not available 08/16/2015 Smoke Alarm In Home Yes Information not available 09/21/2021 At What Age Did You Start Smoking Tobacco? 0 Information not available 08/16/2015 Are You Passively Exposed To Smoke? No Information not available 08/16/2015 How Much Tobacco Do You Smoke? No Information not available 07/06/2014 Do You Use Sunscreen Routinely? Yes Information not available 08/16/2015 How Many Years Have You Smoked Tobacco? 0 Information not available 08/16/2015 Sex: Unknown Functional Status Question Answer Note LastModified by [employer] ion Details LastModified Time Do you use any illicit or recreational drugs? No Information not available 09/21/2021 Do you or have you ever used any other forms of tobacco or nicotine? No Information not available 09/21/2021 What is your level of alcohol consumption? Occasional beer, wine, hard liquor (2 drinks per week) Information not available 01/16/2024 Do you or have you ever used smokeless tobacco? Never used smokeless tobacco Information not available 07/31/2020 Are you currently employed? Yes full-time Information not available 07/06/2014 Are you able to walk independently without assistance or assistive devices? YESWOREST Information not available 09/21/2021 Are you able to care for yourself independently? 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 Never used electronic cigarettes Information not available 09/21/2021 What is your exercise level? None Information not available 01/16/2024 Mental Status None recorded. Family History Relationship Description Onset Age of this Age Resolved Age Notes LastModified by Organization Details LastModified Time Mother Essential hypertension Not available 10/2021 14:13:40 Mother Diabetes mellitus [email or web address] s Not available 07/06/2014 13:04:22 Mother Osteoporosis [email or web address] Not avail able 11/07/2017 11:01:16 Mother Myelodysplas tic syndrome (clinical) Not available 09/21 14:13:40 Mother Guillain-Bar r syndrome 81 Not available 2021 14:13:40 Mother Disorder of nervous system [email or web address] s Not available 07/31/2020 09:43:22 Father Alcoholism Not availab le 09/21/2021 14:13:40 Father Myocardial infarction 58 Not available 09/21 14:13:40 Daughter Anxiety [email or web address] Not available 09/21/2021 14:59:10 Medical History Condition Response Skin Problems Y Hypertension Y Asthma Y Kidney Disease Y Gynecological History Statement/Question Response Date of Last Pap Smear 01/04/2022 Date of Last Colonoscopy 06/27/2016 Most Recent Mammogram 01/03/2023 Obstetrics History GPAL:G 0 P 0 0 0 0 Immunizations Vaccine Type Date Status Note Provider Nam e and Address Organization Details Recorded Time Influenza, high-dose, trivalent, PF 6 completed Verito moctezuma [facility] 06/03/2022 10:29:35 Influenza, split virus, trivalent, preservative 0 completed Verito moctezuma [facility] 06/03/2022 10:29:35 COVID-19, mRNA, LNP-S, PF, 30 mcg/0.3 mL dose 1 completed Verito moctezuma [facility] 06/03/2022 10:29:35 COVID-19, mRNA, LNP-S, PF, 30 mcg/0.3 mL dose 1 completed Verito moctezuma [facility] 06/03/2022 10:29:36 COVID-19, mRNA, LNP-S, PF, 100 mcg/0.5mL dose or 50 mcg/0.25mL dose 1 completed Verito moctezuma [facility] 06/03/2022 10:29:36 Influenza, split virus, quadrivalent, preservative 2 completed Verito moctezuma [facility] 06/03/2022 10:29:36 Influenza, split virus, quadrivalent, PF 2 completed Verito moctezuma [facility] 06/03/2022 10:29:36 Influenza, split virus, quadrivalent, PF 7 completed Not Available [facility] 08/07/2019 02:22:13 Influenza, split virus, quadrivalent, PF 8 completed Not Available [facility] 08/07/2019 02:22:16 influenza, seasonal, intradermal, preservative free 3 completed Verito moctezuma [facility] 06/03/2022 10:29:36 Influenza, split virus, trivalent, PF 4 completed Not Available [facility] 08/07/2019 02:21:58 Tdap 4 completed Not Available [facility] 08/07/2019 02:21:44 Past Encounters Encounter ID Performer Location Encounter Start Date Encounter Closed Date Diagnosis/Indication Diagnosis SNOMED-CT Code Diagnosis ICD10 Code Diagnosis IMO Codes Diagnosis Note [id number] [facility] [address] [place] [address] 03/31/2013 00:00:00 [id number] autoEComm erce [address] [place] [address] 09/22/2013 00:00:00 [id number] Brad Paris MD Main Office [address] [facility] [address] [facility] [address] [place] [address] 07/06/2014 12:48:25 07/06/2014 14:10:17 Adult health examination 626339788 Essential hypertension 56181366 Needs infl uenza immunization 872404858 Administra tion of diphtheria, pertussis, and tetanus vaccine 115388125 Chest pain 07767926 Body mass index 30+ - obesity 249759207 Impaired f asting glycemia 007945982 [id number] Brad Paris MD Main Office [address] [address] 01/04/2015 09:02:06 01/04/2015 10:02:32 Essential hypertension 09843391 Body mass index 30+ - obesity 731416666 [id number] Brad Paris MD Main Office [address] [address] 08/16/2015 09:20:43 08/16/2015 10:54:28 Adult health examination 845261145 Z00.00 Essential hypertension 04695761 I10 Screening for malignant neoplasm of colon 489519447 Z12.11 Body mass index 40+ - severely obese 963707326 Z68.41 Impaired f asting glycemia 885222240 R73.01 Hyperlipidemia 95364601 E78.5 [id number] Brad Paris MD Main Office [address] [address] 03/01/2016 12:40:34 03/01/2016 13:20:02 Essential hypertension 37992033 I10 RECORDED 09/22/2013 9:23AM BY MARY YING MA, OFFICE VISIT Hyperlipidemia 07619763 E78.0 Fatigue 55476411 R53.83 Impaired f asting glycemia 454732426 R73.01 Body mass index 40+ - severely obese 979213641 Z68.41 [id number] Brad Paris MD Main Office [address] [address] 10/25/2016 13:40:25 10/25/2016 14:54:22 Adult health examination 506564946 Z00.00 Screening for malignant neoplasm of breast 942633831 Z12.39 Body mass index 40+ - severely obese 535849681 Z68.41 E66.01 Essential hypertension 36319293 I10 RECORDED 09/22/2013 9:23AM BY MARY YING MA, OFFICE VISIT Hyperlipidemia 94815995 E78.5 Fatigue 65650663 R53.83 Impaired f asting glycemia 629823203 R73.01 Plantar fasciitis 529603 003 M72.2 Allergic reaction 811413 005 T78.40XA [id number] Brad Paris MD Main Office [address] [address] 05/02/2017 10:47:43 05/02/2017 12:14:25 Essential hypertension 11368327 I10 Hyperlipidemia 14430433 E78.5 Needs infl uenza immunization 654254758 Z23 Hyperglycemia 54026190 R 73.9 [id number] Brad Paris MD Main Office [address] [address] 11/07/2017 09:30:15 11/07/2017 11:26:18 Adult health examination 405981804 Z00.00 Screening for malignant neoplasm of breast 966827327 Z12.39 Essential hypertension 64447893 I10 Stable off of medication s Mild inter mittent asthma 474487573 J45.20 Allergic reaction 708125 005 T78.40XA Menopause present 654769 006 Z78.0 Obesity 681102060 E66.9 Body mass index 30+ - obesity 113355036 Z68.30 [id number] Brad Paris MD Main Office [address] [address] 05/22/2018 13:24:18 05/22/2018 14:34:09 Essential hypertension 71713222 I10 Stable off of meds with successful weight management program Hepatitis C screening 41 8291149 Z11.59 Needs infl uenza immunization 153284057 Z23 Hyperlipidemia 78753281 E78.5 Fatigue 69980217 R53.83 Obesity 124635413 E66.9 Body mass index 30+ - obesity 280512818 Z68.32 [id number] Brad Paris MD Main Office [address] [address] 12/18/2018 08:40:56 12/18/2018 09:38:06 Adult health examination 421651098 Z00.00 Essential hypertension 50263735 I10 Stable off of meds with successful weight management program Hyperlipidemia 53880712 E78.5 Obesity 470301189 E66.9 Z68.30 Skin lesion 24569069 L98 .9 Allergic reaction 159158 005 T78.40XA Mild inter mittent asthma 041103694 J45.20 [id number] Brad Paris MD Main Office [address] [address] 07/31/2020 09:39:20 07/31/2020 11:02:26 Adult health examination 598181881 Z00.00 Essential hypertension 84871866 I10 Stable off of meds with successful weight management program Body mass index 40+ - severely obese 403008585 E66.01 Z68.41 Hyperlipidemia 73351774 E78.5 Fatigue 14540897 R53.83 Impaired f asting glycemia 103952793 R73.01 Urticaria 662319285 L50. 9 Allergic reaction 193064 005 T78.40XA Bursitis of shoulder 239 550254 M75.50 [id number] Brad Paris MD [facility] [address] [address] 02/02/2021 08:48:03 02/02/2021 10:50:11 Essential hypertension 39228752 I10 Stable off of meds with successful weight management program Fatigue 61283318 R53.83 Hyperlipidemia 16059836 E78.5 Allergic urticaria 99551 009 L50.0 Skin lesion 38551924 L98 .9 [id number] Fabián Trujillo MD Main Office [address] [address] 09/21/2021 14:12:06 09/21/2021 15:31:37 Adult health examination 778499693 Z00.00 Patient was counseled on healthy diet, exercise and nutrition due to Body mass index is 41.5 kg/m . Last Colonoscop y:Date: 06/27/16Res ult: polypsPlan : Per GI repeat 5yrs, schedule for November Last Mammogram: Date: 03/26/19Resu lt: Birad -1Plan: Schedule for this month. Last Pap smearDate: 12/24/2019Re sult: Neg for MYRNA, TZ present, HPV negPlan: Per USPT screening in 5yrs, had in 2020 Bone density scanDate:R esult:Plan : not due Vaccines:T dAP: 07/06/14Zo ster: Script providedPC V13: not nxeCDVQ97: not dueInfluen za: 08/25/21Covi d: 09/25/20, 10/25/20, 06/22/21 Routine labs today Immunizati on status reviewed. Will screen based on risk factors. Regular dental and ophtho care advised as well as seat belt and sunscreen use. Distracted driving discussed. Medication reconciled . Body mass index 40+ - severely obese 562845604 Z68.41 - Diet and exercise discussed- Patient made aware of risks of obesity- Encouraged to loose weight. Goal set to loose weight at 1-1.5 Lbs/week- Avoid starchy and fatty food- Encouraged use of green vegetables and fruits- Plans to go n weight watcher. Impaired f asting glycemia 155100293 R73.01 Essential hypertension 56427944 I10 Fatigue 73330440 R53.83 Hyperlipidemia 39316837 E78.5 Screening for malignant neoplasm of breast 918199453 Z12.39 Varicella vaccination 68 965955 Z23 Mild inter mittent asthma 043914483 J45.20 Morbid obesity 444406882 E66.01 Impacted c erumen in right ear 3819236749 105522 H61.21 Cyst of skin 126263654 L 72.9 Likely lipoma will refer to derm [id number] Fabián Trujillo MD Main Office [address], [place] [address] 12/27/2022 09:13:37 12/27/2022 10:12:35 Adult health examination 788154660 Z00.00 Patient was counseled on healthy diet, exercise and nutrition due to Body mass index is 40.2 kg/m . Last Colonoscop y:Date: 06/27/16Res ult: polypsPlan : Notes had 1, ~1yr ago, will try to get records Last Mammogram: Date: 10/05/2021 on pvixResult : Birad -2Plan: Schedule for next week. Last Pap smearDate: 12/24/2019Re sult: Neg for MYRNA, TZ present, HPV negPlan: Per USPT screening in 5yrs, had 1 yr ago, will request. Bone density scanDate:R esult:Plan : not due Vaccines:T dAP: 07/06/14Zo ster rec: Script provided [id number] : not dueInfluen za: 05/31/22Co vid: 09/25/20, 10/25/20, 06/22/21, bivalent encouraged Routine labs today Immunizati on status reviewed. Will screen based on risk factors. Regular dental and ophtho care advised as well as seat belt and sunscreen use. Distracted driving discussed. Medication reconciled . Body mass index 40+ - severely obese 190455416 Z68.41 - Diet and exercise discussed- Patient made aware of risks of obesity- Encouraged to loose weight. Goal set to loose weight at 1-1.5 Lbs/week- Avoid starchy and fatty food- Encouraged use of green vegetables and fruits- Plans to go n weight watcher. Morbid obesity 125536708 E66.01 Impaired f asting glycemia 215825101 R73.01 Essential hypertension 33427599 I10 Fatigue 73887304 R53.83 Hyperlipidemia 59391943 E78.5 Varicella vaccination 68 436029 Z23 Mild inter mittent asthma 175114815 J45.20 Stable on inhalers. Impacted c erumen of bilateral ears [id number] 349128 H61.23 advised to avoid qtip and use debrox. If having sensation of blocked ears to come in for a lavage. Bursitis of shoulder 239 759041 M75.50 On examinatio n her symptoms seem consistent with bursitis and some component of tendinitis as well. We talked about conservati ve therapy (JOCELYN) and also physical therapy. I provided her with a referral for physical therapy and gave some NSAIDs. She is aware not to take any over-the-c ounter NSAIDs with what I prescribed her, she is can take it for 5 days consecutiv jewell and after that only take as needed, she was advised to monitor her blood pressure. [id number] Fabián Trujillo MD Main Office [address] [facility] [address] [facility] [place], [place] [address] 01/16/2024 15:01:02 01/16/2024 16:08:29 Adult health examination [id number] Z00.00 Patient was counseled on healthy diet, exercise and nutrition due to Body mass index is 41.4 kg/m . Last Colonoscop y:Date: 11/30/21Res ult: wnlPlan: per GI screen 5yrs Last Mammogram: Date: 01/03/23Res ult: Birad 2Plan: Schedule for next week. Last Pap smearDate: 01/10/23Res ult: Neg for MYRNA, TZ present, HPV negPlan: Per USPT screening in 5yrs Bone density scanDate:R esult:Plan : not due Vaccines:T dAP: 07/06/14Zo ster rec: Script provided [id number] : not dueInfluen za: yearly flu encouraged Covid: encourage updated vaccine Routine labs today Immunizati on status reviewed. Will screen based on risk factors. Regular dental and ophtho care advised as well as seat belt and sunscreen use. Distracted driving discussed. Medication reconciled . Body mass index 40+ - severely obese 646627140 Z68.41 - Diet and exercise discussed- Patient made aware of risks of obesity- Encouraged to loose weight. Goal set to loose weight at 1-1.5 Lbs/week- Avoid starchy and fatty food- Encouraged use of green vegetables and fruits- Plans to go n weight watcher. Morbid obesity 393122858 E66.01 Essential hypertension 15480230 I10 Fatigue 01891168 R53.83 Hyperlipidemia 11085205 E78.5 Varicella vaccination 68 455586 Z23 Mild inter mittent asthma 588385883 J45.20 Stable on inhalers. Administra tion of diphtheria, pertussis, and tetanus vaccine 576641073 Z23 Neuropathy 937591418 G62 .9 b/l thighs Pain in both feet 844036 4562 1708043 M79.671 M79.672 Will get XRRefer to podiatry [id number] Fabián Trujillo MD Main Office [address] [address] 02/27/2024 13:32:16 02/27/2024 14:23:00 Rheumatoid factor detected 692299168 R76.0 Neuropathy 453500671 G62 .9 b/l thighs Pain in both feet 031667 9966 6508173 M79.671 M79.672 Essential hypertension 42228502 I10 bp well controlled will cont. current dose of medication . Allergic reaction 261585 005 T78.40XD Bee sting- induced anaphylaxis 804781308 T63.441D [id number] Federico Leigh MD Main Office [address] [facility] [address] [place] [address] 05/21/2024 13:34:39 05/21/2024 14:08:02 Pain in both feet 0040856015 8541035 M79.671 M79.672 x2.5 years; occasional flare up-recent xray from 01/2024> mild OA with intertarsa l spurring-h as been completing conservati ve measuremen ts; applying ice, tylenol/NS AIDs, rest/eleva tion-tende rness to palpation of 2nd/3rd toe of right foot-will refer to podiatry [id number] Fabián Trujillo MD Main Office [address] [facility] [address] [place] [address] 07/13/2024 09:00:30 07/13/2024 09:53:53 Hyperuricemia 10494696 E79.0 Rheumatoid factor detected 602312435 R76.0 Serum crea tinine above reference range 568322318 R79.89 Health Concerns Section Related Observation LastModified by Organization Detai ls LastModified Time None Recorded Concern Status LastModified by Organization Details LastModified Time None Recorded Advance Directives Directive Y: HCP Payers Insurance Date Sequence Insurance Name Policy Number Policy Lau Covered Member ID Lau Member ID Guarantor Name 01/23/2024 1 [facility] [id number] Demian L Shaye [id number] Concepción L Shaye 01/15/2024 1 [facility] [id number] Demian Shaye [id number] Concepción L Shaye 04/14/2025 1 [place] [id number] Demian D Shaye [id number] Concepción L Shaye 01/30/2021 1 [place] [id number] Demian Shaye [id number] Concepción L Shaye 04/14/2025 1 [facility] [id number] Demian Shaye [id number] Concepción L Shaye 05/21/2024 1 [facility] [id number] Digna L Shaye [id number] Concepción L Shaye 05/21/2024 1 [facility] [id number] Digna L Shaye [id number] Concepción Cr 01/04/2015 1 [facility] ([facility] [id number] Demian Cr [id number] Concepción Cr 07/31/2020 1 [facility] [id number] Demian Cr [id number] Concepción Cr 05/21/2024 1 [facility] ([facility] [id number] Digna Cr [id number] Concepción Cr Notes Date Note Type Note Provider Name and Address Organization Details Recorded Time 12/27/2022 text/html Musculoskeletal PainReported by PatientHPIFor quality, patient reportsaching,sharp, anddull. For location, patient reportspain is not radiatingandleft shoulder. For duration, patient reportspresent for 1-6 months. For timing, patient reportsintermittent. For context, patient reportsoveruse. For alleviating factors, patient reportsrest. For aggravating factors, patient reportsmovement/positi oning. For associated symptoms, patient reportsno fever,no weak limbs,no tingling,no numbness of the legs/feet, andon incontinence. Generic HPI TemplateReported by Patient Here for PE visit. Reviewed chronic medications and medical problems. Discussed screening guidelines as well as goals for fitness and weight management. Fabián Trujillo MD [address], [address], [facility] 12/27/2022 10:42:46 01/16/2024 text/html Generic HPI TemplateReported by Patient Here for PE visit. Reviewed chronic medications and medical problems. Discussed screening guidelines as well as goals for fitness and weight management. Fabián Trujillo MD [address], [phone], [facility] 01/16/2024 16:05:26 02/27/2024 text/html ArthritisReporte d by PatientHPIFor associated symptoms, patient reportsredness,pain (location ___),rash (location on legs and arms, derm has never seen but cream given said to be itch raised, last a few days.), andstiffness (>1hr)but reportsno swelling,no fever, andno facial malar rash(swollen of toe and redness, some warmth and finger (finger don't hurt)). For onset, patient reports6-8 months ago. For location, patient reportswrists (achy),legs (neuropathy like, gets numb b/l thighs),hands, andfeet. For severity, patient reportsintermittent. For context, patient reportsfamily history of rheumatoid arthritis mom. For interim medical visits, patient reportsprimary care physician. 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 Patient, here for follow up after in PE she noted neuropathy sx and pain in both feet. Fabián Trujillo MD [address] [address], [place], [address], [facility] 02/28/2024 11:52:07 05/21/2024 text/html ROS as noted in the HPI Digna is a 58yr old F who presents for bilateral foot pain, R>L x2.5years. Reports of having flare ups of bilateral foot pain. Is scheduled to see rheumatology in June, has not been able to get a hold of podiatry. Reports of having flare ups of foot pain throughout the year. Duration can vary from a few days to weeks but does eventually resolve. Notes to have tenderness to touch, swelling, and pain with weight bearing. Affecting the 2nd and 3rd digit of the right foot. Takes tylenol, NSAIDs, applies ice, which all provide some relief. JOSE RAMON UMANA [address] [facility] [address], [place], [address], [facility] 05/26/2024 10:54:09 07/13/2024 text/html ArthritisReporte d by PatientHPIFor associated symptoms, patient reportsredness,swellin g (location ___),pain (location ___),rash (location trunk) (follows derm.), andstiffness (less then 30min in am.)but reportsno limp,no fever, andno facial malar rash. For location, patient reportsfeet (2-3rd digit on right side.). For severity, patient reportsintermittentand improving. For context, (uncle and dad might have had gout.).The patient presents for follow-up to discuss a possible initial gout flare. She previously saw my PA and shared photos of her symptoms, which included warmth, redness, and tenderness in the second and third digits of her right foot, making ambulation very difficult. Since that time, her symptoms have resolved. She was referred to a grinder mill operator, who noted a positive rheumatoid factor (RF) and elevated uric acid levels, suggesting a differential diagnosis of gout, rheumatoid arthritis, or a combination of both. The patient also reports that her tube room cashier has raised the possibility of psoriatic arthritis due to the presence of certain silvery patches on her skin. However, this diagnosis has not been clearly documented in the tube room cashier s notes, despite the patient undergoing skin biopsies in the past. The patient seeks further clarification regarding her condition and ongoing management. Follow up for ?gout vs RA. Fabián Trujillo MD [address] [address], [place], [address], [facility] 07/13/2024 12:42:33 OBGyn Episode No OBEpisode recorded.
== END 2025-04-14 15:49 | disposition home or self-care (01) ==
PROVIDERS: PCP Family Medicine; Visit Provider Internal Medicine Rheumatology
DX: M10.9 Gout, unspecified (principal); E79.0 Hyperuricemia without signs of inflammatory arthritis and tophaceous disease; R21 Rash and other nonspecific skin eruption
CPT/HCPCS: 99214